=== PATIENT | male | born 1970 | race Caucasian/White ===

== ENCOUNTER 2017-03-30 12:56 | Observation (INO) ==
[2017-03-30] MEDS ORDERED: ENOXAPARIN 30 MG/0.3 ML SYRINGE SUBCUT STA (13:21)
[2017-03-30] MEDS ORDERED: NITROGLYCERIN 2% OINT 1 INCH/GM PACK TOP STA (13:22)
--- NOTE | 2017-03-30 13:32 | XRay Report ---
History: Chest pain Date: 03/30/2017 Study: Chest x-ray AP portable Comparison exam: October 27, 2016 The cardiomediastinal silhouette and pulmonary vasculature are unremarkable without significant interval change. There is no gross pleural effusion. The lungs are well-expanded and generally clear without acute infiltrate. Osseous structures are unchanged. Impression: No acute cardiopulmonary process. No significant interval change from the previous study PROCEDURE INTERPRETED AT [facility] DEPARTMENT OF RADIOLOGY Final Report Signed by: Dr. Jeannie Salazar
[2017-03-30] MEDS ORDERED: ENOXAPARIN 100 MG/ML SYRINGE SUBCUT ONE (13:38)
[2017-03-30] MEDS ORDERED: NITROGLYCERIN 2% OINT 1 INCH/GM PACK TOP ONE (13:38)
[2017-03-30 13:44] LABS: Basophils # 0.1 10*3/uL (0.0-0.2); Basophils % 0.9 % (0.0-0.8); Eosinophils # 0.3 10*3/uL (0.0-0.87); Eosinophils % 4.5 % (0.00-10.9); Hematocrit 42.2 VOL% (42.0-52.0); Immature Granulocytes Absolute 0.07 #; Lymphocytes # 1.9 10*3/uL (1.4-4.0); Lymphocytes % 27.2 % (21.2-54.2); Mean Corpuscular HGB Conc 35.5 GM/DL (32-36); Mean Corpuscular Hemoglobin 34 PG (27-34); Mean Corpuscular Volume 94.6 FL (87-102); Mean Platelet Volume 10.3 FL (9.6-12.0); Monocytes % 13.9 % (1.7-12.7); Neutrophils # 3.6 10*3/uL (1.4-7.4); Neutrophils % 52.5 % (38.7-73.9); Platelet Count 279 T/CUMM (130-400); Red Blood Count 4.46 MC/CUMM (3.8-5.5); Red Cell Distribution Width 11.9 % (9.3-17.3); White Blood Count 6.9 T/CUMM (4-12)
[2017-03-30 14:22] LABS: Troponin I Only < 0.015 NG/ML (0.00-0.045)
[2017-03-30] MEDS ORDERED: MAGNESIUM SULF RIDER 2 GM in PREMIX 1 EACH IV PRN ×2 (15:02→18:30)
[2017-03-30] MEDS ORDERED: ACETAMINOPHEN 325 MG TABLET PO PRN (15:02)
[2017-03-30] MEDS ORDERED: ONDANSETRON 4 MG/2 ML VIAL IV PRN (15:02)
[2017-03-30] MEDS ORDERED: MAGNESIUM SULF RIDER 4 GM in PREMIX 1 EACH IV PRN (15:02)
[2017-03-30] MEDS ORDERED: NITROGLYCERIN SL 0.4 MG TABLET SL PRN (15:04)
--- NOTE | 2017-03-30 15:09 | Emergency Department Note ---
Chadd Cody Brittany, am scribing for, and in the presence of, Thomas Donnelly MD 13:31. Cony Cody Phillip K, MD, personally performed the services described in this documentation, ascribed by Renata Florentino in my presence, and it is both accurate and complete . Arrival - Arrival Chief Complaint: Chest Pain Stated Complaint: chest and left arm pain ED Nursing Triage Note: pt ambulatory to triage with c/o having chest pain with nausea, diaphoretic, denies any sob. pt states he felt like he is going to pass out. pt states onset around 1100. pt states having radiating pain down left arm with numbness. and pain into neck with jaw pain. 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 Mode of Arrival: Ambulatory Limitations: No Limitations Source: Patient, RN Notes Reviewed Time Seen by Provider: 03/30/17 13:15 - History of Present Illness HPI Narrative: Patient is a 47 y/o white male presenting to the ED with c/o left-sided chest pain that began this morning around noon. Patient reports that he was just walking, not doing any particular type of exertional activity. He states that he took a NTG and 325 mg ASA, with some relief. He notes having some associated tingling sensation of the L hand, nausea, and weakness. He denies having any SOB. Patient reports that upon initial onset of chest pain he thought that it was related to the lesion located on level C6 of his spine due to history of chest pains associated, but after developing tingling of the L hand he became concerned that this was probably his heart. Denies any recent coughs or fevers. Patient notes that he is currently on Lisinopril and Lipitor for HTN and HLD, with which he is compliant. Patient notes last Cardiac Catheterization was about a year ago. Patient is followed by Dr. Griffin of Cardiology. Patient has no further complaints. Onset (ago): hour(s) (1) Consistency: constant Allergies/Adverse Reactions: Allergies Allergy/AdvReac Type Severity Reaction Status Date / Time levofloxacin [From Levaquin] Allergy RASH Verified 03/30/17 13:10 Home Medications: Home Medications Medication Instructions Recorded Confirmed Type Nitroglycerin Sl Tab [Nitrostat] 0.4 mg SL Q5M PRN #25 tablet 01/03/16 03/30/17 Rx Furosemide Tab [Lasix Tab] 40 mg PO DAILY 01/13/16 03/30/17 History Clopidogrel [Plavix] 75 mg PO DAILY 03/22/16 03/30/17 History Pantoprazole Tab [Protonix Tab] 40 mg PO BEDTIME 03/22/16 03/30/17 History Atorvastatin [Lipitor] 80 mg PO BEDTIME 05/13/16 03/30/17 History Lisinopril 5 mg PO DAILY 05/13/16 03/30/17 History Ranolazine [Ranexa] 1,000 mg PO BID #60 tablet 05/14/16 03/30/17 Rx Aspirin EC Tab 325 mg PO QAM 09/01/16 03/30/17 History Clorazepate [Tranxene] 3.75 mg PO TID PRN 09/01/16 03/30/17 History Dronedarone [Multaq] 400 mg PO BID 09/01/16 03/30/17 History HYDROcodone/ACETAMIN 5-325 [[place] 1 tablet PO Q4H PRN 09/01/16 03/30/17 History 5-325] Baclofen [Baclofen] 10 mg PO BID PRN 03/30/17 03/30/17 History Review of System - Review of System 12 point system: reviewed and no additional remarkable complaints except as stated - Review of System Constitutional: Present: diaphoresis. Absent: chills, fever Eyes: Absent: vision change Head/Ears/Nose/Throat: Absent: nasal drainage, sore throat Respiratory: Absent: respiratory distress Cardiovascular: Present: chest pain Gastrointestinal: Present: nausea. Absent: abdominal pain, vomiting Genitourinary male: Absent: urgency, dysuria, frequency Musculoskeletal: Present: arm pain. Absent: back pain, leg pain, neck pain Skin: Absent: rash Neurological: Present: other (tingling of the L hand). Absent: headache Psychiatric: Absent: anxiety, depression Hematological/Lymphatic: Absent: easy bleeding, easy bruising Medical,Surgical,& Family Hx - Medical History Cardio: History of: Cardiac Dysrhythmia, CAD (stents x3), Hypertension, VT, Cardiovascular Problems No history of: CHF, Pacemaker, PVD Neurology: History of: Cerebrovascular Accident No history of: Brain Aneurysm, Cerebral Hemorrhage, Cerebral Palsy, Dementia , Migraine, Multiple Sclerosis, Peripheral Neuropathy, Seizures, TIA, Vertigo, Neurologocal Cancer HEENT: No history of: Ear Problem, Eye Problem, Dental Problems, Glaucoma, Oral Cancer, HEENT Problems Endocrine: History of: Dyslipidemia, Thyroid Disorder (IN REACTION TO BP MEDS PER PT) Rheumatology: No history of;: Systemic Lupus Erythematosus, Rheumatological Problems Respiratory: History of: Asthma, Bronchitis, Pneumonia No history of: COPD, Intubation, Obstructive Sleep Apnea, Pulmonary Embolism , Pulmonary Hypertension, Lung Cancer, Respiratory Problems Renal: No history of: Renal (Kidney) Cancer, Dialysis, Renal Failure, Renal Problems Genitourinary: No history of: Bladder Problem, Kidney Stones, Prostate Problems, Recurring Urinary Tract Infections, Genitourinary Cancer, Problems Gastrointestinal: History of: GERD Musculoskeletal: No history of: Amputation, Back/Neck Problems, Degenerative Disk Disease, Musculoskeletal Problems Hematology: No history of: Blood Transfusion Reaction Other: No history of: Anesthesia Reactions, Anaphylaxis, Cancer, Eczema, HIV, Skin Problems - Surgical History Cardiac Surgeries: Sugical HX of: Cardiac Catheterization (stent x 4) Thoracic Surgeries: Patient denies;: Kidney (Renal Surgery), Lithotripsy, Nephrectomy, Organ Transplant, Lobectomy Neurologic Surgeries: Patient denies: Brain Aneurysm, Cerebral Hemorrhage, Neurologic Surgery HEENT Surgeries: Surgical HX of: Tonsilectomy & Adenoidectomy Patient denies: Thyroid Surgery Abdominal Surgeries: Patient denies: Cholecystectomy Reproductive Surgeries: Patient denies;: Cystoscopy, Genitourinary Surgery, Prostate Surgery Orthopedic Surgeries: Patient denies;: Implanted Devices, Orthopedic Surgery, Spinal Surgery, Total Hip Replacement, Total Knee Replacement - Family History Family History: Reports;: Family Cancer, Family Heart Disease, Family Hypertension Denies;: Family Stroke - Social History Smoking Status: Former smoker Frequency of Alcohol Use: Rarely Type of Drug Use: None Exam Vital Signs: Vital Signs Temperature 97.8 F 03/30/17 13:47 Pulse Rate 89 03/30/17 13:47 Respiratory Rate 18 03/30/17 13:47 Blood Pressure 121/93 03/30/17 13:47 O2 Sat by Pulse Oximetry 100 03/30/17 13:43 - General General appearance: alert, in no apparent distress - Head Head exam: Present: atraumatic, normocephalic, normal inspection - Eye Eye exam: Present: normal appearance, PERRL, EOMI - ENT ENT exam: Present: normal exam, normal oropharynx - Neck Neck exam: Present: normal inspection, full ROM, trachea midline - Chest Chest inspection: Present: normal inspection, symmetric chest wall rise - Respiratory Respiratory exam: Present: normal lung sounds bilaterally. Absent: respiratory distress - Cardiovascular Cardiovascular exam: Present: regular rate, normal rhythm, normal heart sounds. Absent: murmur, rubs, gallop - Abdominal Exam Abdominal exam: Present: soft, normal bowel sounds. Absent: distention, tenderness - Extremities Exam Extremities exam: Present: normal inspection. Absent: pedal edema - Back Exam Back exam: Present: normal inspection - Neurological Exam Neurological exam: Present: alert, oriented X3, CN II-XII intact. Absent: motor sensory deficit - Psychiatric Psychiatric exam: Present: normal affect, normal mood - Skin Skin exam: Present: warm, dry Course Course Narrative: Patient discussed with Dr. Griffin Results - Labs CBC & BMP: 03/30/17 13:34 Lab Results: I have reviewed the patients labs Labs: Laboratory Tests 03/30/17 13:34 WBC 6.9 RBC 4.46 Hgb 15.0 Hct 42.2 Plt Count 279 [place] % (Auto) 13.9 H Baso % (Auto) 0.9 H [place] # (Auto) 1.0 H Laboratory Tests 03/30/17 13:34 Magnesium 2.1 Laboratory Tests 03/30/17 13:34 Total Creatine Kinase 190 CK-MB (CK-2) 2.7 Troponin I < 0.015 Laboratory Tests 03/30/17 13:34 B-Natriuretic Peptide 15 - Diagnostic Findings Procedure: Chest x-ray: report reviewed by me (No acute cardiopulmonary process. No significant interval change from the previous study.) Disposition Clinical Impression: Unstable angina, Coronary artery disease, Essential hypertension Case discussed with: patient Disposition: Still a Patient Condition: Guarded Additional Instructions: Admit to Dr. Griffin
[2017-03-30 15:57] LABS: Bilirubin,Total 0.7 MG/DL (0.2-1.0); Calcium 9.2 MG/DL (8.5-10.1); Osmolality,Calculated 270.2 MOS/KG (273-304); Potassium 4.2 MMOL/L (3.5-5.1); Total Protein 7.2 G/DL (6.4-8.3)
[2017-03-30] MEDS ORDERED: BACLOFEN 10 MG TABLET PO PRN (16:12)
--- NOTE | 2017-03-30 16:46 | Cardiology History & Physical ---
<Tiffanie Anderson - Last Filed: 03/30/17 15:46> Assessment and Plan - Time spent with patient Time spent with patient: Greater than 30 minutes (1) Chest pain Status: Acute Assessment and plan: SEE PLAN OF CARE LISTED BELOW. Current Visit: Yes (2) Coronary artery disease Status: Chronic Assessment and plan: SEE PLAN OF CARE LISTED BELOW. Current Visit: Yes (3) Essential hypertension Status: Chronic Assessment and plan: SEE PLAN OF CARE LISTED BELOW. Current Visit: Yes (4) Fatigue Status: Acute Assessment and plan: SEE PLAN OF CARE LISTED BELOW. Current Visit: Yes (5) Cardiomyopathy, ischemic Status: Chronic Assessment and plan: SEE PLAN OF CARE LISTED BELOW. Current Visit: No (6) Dyslipidemia Status: Chronic Assessment and plan: SEE PLAN OF CARE LISTED BELOW. Current Visit: No (7) GERD (gastroesophageal reflux disease) Status: Chronic Assessment and plan: SEE PLAN OF CARE LISTED BELOW. Current Visit: No (8) Paroxysmal atrial fibrillation Status: Chronic Assessment and plan: SEE PLAN OF CARE LISTED BELOW. Current Visit: No (9) Renal insufficiency Status: Chronic Assessment and plan: SEE PLAN OF CARE LISTED BELOW. Current Visit: Yes History of Present Illness Chief complaint: Chest pain History of present illness: [employer]DER: Dr. Griffin PCP: Dr. Greenberg Mr. Palma is a 47 year old male with known history of coronary artery disease , routinely followed by Dr. Griffin. He has cardiac risk factors significant for: Known severe coronary artery disease, hypertension, family history of premature CAD, obesity, former smoker (quit in 2015) and dyslipidemia. He is a history of GERD, paroxysmal A. fib and ischemic cardiomyopathy. EF 40%. He has significant heart disease. He has undergone multiple heart catheterizations requiring numerous stents since December 2015. He received PCI to PDA and PCI to third posterior lateral branch December 2015. February 2016 he received PCI to proximal to mid LAD. His last heart catheterization at [facility] was performed by Dr. Solis. He required PCI to an obtuse marginal coronary artery at that time. He has since been to the [facility], April 2016. He had repeat catheterization at that facility which revealed patent stents and small vessel coronary artery disease with branch disease. Medical management has ensued. Ranexa 500 mg orally twice a day was initiated at the [facility] visit. He had normal cardiac stress test September 2016. Patient's most recent hospitalization was in October 2016. At that time it was felt that his chest pain was secondary to his C5-C6 cervical lesion. Pain management was consulted and felt that this could very well be contributing to his symptoms. He underwent cervical spine MRI which revealed small synovial cyst in the C5-C6 facet joint. Subsequently, he underwent biopsy which did not reveal inflammatory process. Patient was last seen by Dr. Griffin in the cardiology clinic January 2017. At that time, he is without complaints of angina. Patient presented to [facility] today for further evaluation of chest pain. He reports that he has been having problems with intermittent episodes of chest discomfort for the past 10 days. He reports that he developed substernal chest pain while walking at work today. He describes his pain as a pressure/sharp pain. Associated with nausea and diaphoresis. Denies associated shortness of breath. Rates his pain a 6 out of 10. He does tell me that it was made worse with walking. This continued for at least 45 minutes. His pain improved after taking aspirin and nitroglycerin. He then began experiencing left arm pain and numbness. At that point, he was concerned that it was cardiac related and he needs to be further evaluated in the emergency department. Patient reports that every time that he has required coronary intervention he has presented differently. He reports that his symptomology this time is not necessarily exactly as previous times. Per his report, they are never the same. When he arrived in the ER he received nitro paste which he reports completely alleviated his pain. Patient has not experienced any further chest pain since that time. Patient has been admitted under cardiology service. Housed in the telemetry unit. Of note, patient does confirm easy fatigability of her the past week. He has had no energy. He denies fever, chills, cough, abdominal pain, vomiting, melena , lower extremity swelling, dyspnea on exertion, orthopnea and PND. Patient was seen and examined on the telemetry unit. Patient is currently without complaint of chest pain, heaviness or tightness. Cardiac biomarkers negative so far. EKG without ischemic changes. Will continue to trend cardiac biomarkers and EKGs. We will keep patient n.p.o. after midnight. Given patient 's significant history of coronary artery disease, I will discuss with Dr. Griffin and Dr. Chaudhary regarding the need for possible heart catheterization in the morning if his renal function optimizes. I will hold his ROSALBA inhibitor and begin hydration. Recheck renal function in the morning. Patient is not on beta -blockade at this time as he has been unable to tolerate this in the past per his report. Patient received therapeutic dose of Lovenox. Continue dual antiplatelet therapy, lipid-lowering agent and nitrates. Further plan and addendum to follow per Dr. Griffin. IMPRESSION AND PLAN 1. CHEST PAIN - Patient is currently chest pain-free. Cardiac biomarkers are negative so far. EKG without ischemic changes. Will continue to trend cardiac biomarkers and EKGs. We will keep patient n.p.o. after midnight. Given patient 's significant history of coronary artery disease, I will discuss with Dr. Griffin and Dr. Chaudhary regarding possible heart catheterization in the morning if his renal function optimizes. I will hold his ROSALBA inhibitor and begin hydration. Recheck renal function in the morning. Patient is not on beta-blockade at this time as he has been unable to tolerate this in the past per his report. Patient received therapeutic dose of Lovenox. Continue dual antiplatelet therapy, lipid-lowering agent and nitrates. Further plan and addendum to follow per Dr. Griffin. 2. KNOWN CAD - Patient does have known CAD with multiple coronary interventions in the past. Continue aspirin, Plavix, lipid-lowering agent, Ranexa, and nitrates. Patient is not on beta-blockade at this time as patient has not tolerated this medication in the past per his report. 3. CARDIOMYOPATHY, ISCHEMIC - Most recent ejection fraction 40% per cardiac stress test performed September 2016. No evidence of overt heart failure this hospitalization. BNP stable at 15. Holding ROSALBA inhibitor due to fear of worsening renal function. Patient is not on beta-blockade at this time as he has not been able to tolerate this medication in the past. 4. DYSLIPIDEMIA - Continue lipid-lowering agent. Lipid panel in the morning. 5. HYPERTENSION - Under well control. Will continue to monitor blood pressure and adjust medications accordingly. 6. PAROXYSMAL ATRIAL FIBRILLATION - No evidence of atrial fibrillation this hospitalization. Patient has a chads vas score of 2. Continue aspirin. I will discuss with Dr. 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 7. GERD - Continue PPI. 8. C5-C6 CERVICAL LESION - Chronic, stable. 9. RENAL INSUFFICIENCY - This is chronic. Creatinine today 1.6. We will hold patient's ROSALBA inhibitor and begin hydration tonight. Recheck renal function in the morning Home Medications Medication Instructions Recorded Confirmed Type Nitroglycerin Sl Tab [Nitrostat] 0.4 mg SL Q5M PRN #25 tablet 01/03/16 03/30/17 Rx Furosemide Tab [Lasix Tab] 40 mg PO DAILY 01/13/16 03/30/17 History Clopidogrel [Plavix] 75 mg PO DAILY 03/22/16 03/30/17 History Pantoprazole Tab [Protonix Tab] 40 mg PO BEDTIME 03/22/16 03/30/17 History Atorvastatin [Lipitor] 80 mg PO BEDTIME 05/13/16 03/30/17 History Lisinopril 5 mg PO DAILY 05/13/16 03/30/17 History Ranolazine [Ranexa] 1,000 mg PO BID #60 tablet 05/14/16 03/30/17 Rx Aspirin EC Tab 325 mg PO QAM 09/01/16 03/30/17 History Clorazepate [Tranxene] 3.75 mg PO TID PRN 09/01/16 03/30/17 History Dronedarone [Multaq] 400 mg PO BID 09/01/16 03/30/17 History HYDROcodone/ACETAMIN 5-325 [[place] 1 tablet PO Q4H PRN 09/01/16 03/30/17 History 5-325] Allergies Allergy/AdvReac Type Severity Reaction Status Date / Time levofloxacin [From Levaquin] Allergy Intermediate RASH Verified 03/30/17 16:33 Beta-Blockers AdvReac Severe Fainting Verified 03/30/17 16:36 (Beta-Adrenergic Bloc ticagrelor [From Brilinta] AdvReac Severe Fainting Verified 03/30/17 16:36 - Constitutional Constitutional: Present: as per HPI, fatigue, malaise, weakness. Absent: chills , fever(s), frequent falls, headache(s), weight gain, weight loss - Cardiovascular Cardiovascular: Present: as per HPI, chest pain with activity, diaphoresis, radiating jaw, neck or arm pain, lightheadedness. Absent: dyspnea, dyspnea on exertion, edema, orthopnea, palpitations, PND - Respiratory Respiratory: Present: as per HPI. Absent: cough, dyspnea, hemoptysis, dyspnea on exertion, wheezing, snoring, pain on inspiration, change in phlegm color - Gastrointestinal Gastrointestinal: Present: as per HPI, nausea. Absent: abdominal pain, change in bowel habits, coffee ground emesis, heartburn, hematemesis, hematochezia, melena, vomiting - Neurological Neurological: Present: as per HPI. Absent: abnormal gait, abnormal speech, behavioral changes, frequent falls, headache(s), syncope - Psychiatric Psychiatric: Present: as per HPI, anxiety - Hematologic/Lymphatic Hematologic/Lymphatic: Present: as per HPI. Absent: easy bleeding, easy bruising, lymphadenopathy Medical,Surgical,& Family Hx - Medical History Cardio: History of: Cardiac Dysrhythmia, CAD (stents x3), Hypertension, [place], Cardiovascular Problems Endocrine: History of: Dyslipidemia Rheumatology: No history of;: Systemic Lupus Erythematosus, Rheumatological Problems Respiratory: History of: Asthma, Bronchitis, Pneumonia Gastrointestinal: History of: GERD - Surgical History Cardiac Surgeries: Sugical HX of: Cardiac Catheterization (stent x 4) HEENT Surgeries: Surgical HX of: Tonsilectomy & Adenoidectomy Reproductive Surgeries: Patient denies;: Genitourinary Surgery, Prostate Surgery - Family History Family History: Reports;: Family Cancer, Family Heart Disease, Family Hypertension Denies;: Family Stroke - Social History Smoking Status: Former smoker Frequency of Alcohol Use: Rarely Type of Drug Use: None Marital Status: Lives With:: Spouse Functional capacity: independent ambulation Cardiology Physical Exam - Constitutional Vitals: Vital Signs Temp Pulse Resp BP Pulse Ox 97.8 F 89 18 121/93 100 03/30/17 13:47 03/30/17 13:47 03/30/17 13:47 03/30/17 13:47 03/30/17 13:43 Intake and Output 03/30/17 03/30/17 03/30/17 06:59 14:59 22:59 Other: Weight 230 lb Patient Weight 03/31/17 06:59 Weight 230 lb Exam: General: Appears well with no apparent distress. Pleasant and cooperative. Appears comfortable. HEENT: PERRL, normocephalic, atraumatic. Mucous membranes moist. No jaundice noted. Conjunctiva moist and clear, sclerae anicteric Neck: No JVD/HJR, no thyromegaly or lymphadenopathy noted. No carotid bruit appreciated Cardiac: Regular rate and rhythm. No murmur rub or gallop. Lungs: Clear to auscultation without accessory muscle use to assist the respiratory pattern. Not requiring oxygen. Abdomen: Soft, bowel sounds normoactive. Nontender and nondistended. No abdominal bruit or thrill noted. No masses noted. Extremities: No clubbing, cyanosis noted. No edema noted. Upper extremity pulses 2+. Lower extremity pulses 2+. Capillary refill less than 3 seconds. Skin: No unusual lesions or rashes. No skin breakdown appreciated. Neuro: Awake, alert and oriented 3. Moves all extremities well without hemiparesis or paralysis. No essential tremor is appreciated. Result/EKG - Labs CBC & BMP: 03/30/17 13:34 Lab Results: I have reviewed the past 24 hour labs Labs: Laboratory Results - last 24 hr 03/30/17 03/30/17 03/30/17 13:34 13:34 13:34 WBC 6.9 RBC 4.46 Hgb 15.0 Hct 42.2 MCV 94.6 MCH 34 MCHC 35.5 RDW 11.9 Plt Count 279 MPV 10.3 Neut % (Auto) 52.5 Lymph % (Auto) 27.2 [place] % (Auto) 13.9 H Eos % (Auto) 4.5 Baso % (Auto) 0.9 H Neut # (Auto) 3.6 Lymph # (Auto) 1.9 [place] # (Auto) 1.0 H Eos # (Auto) 0.3 Baso # (Auto) 0.1 Immature Gran % 1.0 Nucleated RBC % 0.0 Immature Gran # 0.07 Nucleated RBCs # 0.00 Immature Plt Fraction 0.0 Magnesium 2.1 Total Creatine Kinase CK-MB (CK-2) Troponin I B-Natriuretic Peptide 15 03/30/17 13:34 WBC RBC Hgb Hct MCV MCH MCHC RDW Plt Count MPV Neut % (Auto) Lymph % (Auto) [place] % (Auto) Eos % (Auto) Baso % (Auto) Neut # (Auto) Lymph # (Auto) [place] # (Auto) Eos # (Auto) Baso # (Auto) Immature Gran % Nucleated RBC % Immature Gran # Nucleated RBCs # Immature Plt Fraction Magnesium Total Creatine Kinase 190 CK-MB (CK-2) 2.7 Troponin I < 0.015 B-Natriuretic Peptide - EKG EKG results: interpreted by me, sinus rhythm <Griffin,Brett Philip - Last Filed: 03/30/17 18:30> History of Present Illness History of present illness: Patient personally interviewed and examined chart reviewed. Discussed this case with Tiffanie Anderson NP. Agree with the assessment and evaluation and plan. Mr. Palma is a 47 year old male who has had coronary disease with stent placement of the RCA as well as the obtuse marginal branch and LAD. The patient had recurrent other problems and neck pain arm pain that is been probably muscle skeletal and secondary to spinal nerve issues from that. The patient though today had episode of arm pains chest pain. His ECG does not reveal any acute changes cardiac enzymes are unremarkable. He also has had some episodes of just feeling suddenly weak little lightheaded. In the past she has had some atrial fibrillation as well as issues in some PVCs. He though is presently doing well his present medical regimen in general. I think because of his symptomatology known coronary disease and symptoms we will proceed with cardiac catheterization tomorrow the right radial approach. I discussed the procedure with he and his indicated procedure had be carried out the risk. I discussed cardiac catheterization and percutaneous coronary intervention with the patient and available family. I reviewed with them the indications for the procedure and the basis of how the procedure would be carried out. I also reviewed with them the risk of the procedure which include but not necessarily limited to access site bleeding, bruising, pain, swelling or vascular injury that may require emergency vascular surgery, blood transfusion, or thrombin injection. Also discussed the possibility of stroke, myocardial infarction, arrhythmia which may require electrocardioversion, and the possibility of dye reaction that would require medical therapy. Also discussed the possibility of coronary artery injury, ruptured, closure or perforation that may require emergency bypass surgery. We also discussed the possibility of from a major complication. They voice understanding and agree to proceed. We will plan on carrying out tomorrow. Cardiology Physical Exam - Constitutional Vitals: Vital Signs Temp Pulse Resp BP Pulse Ox 97.6 F 79 18 114/76 94 L 03/30/17 16:12 03/30/17 16:12 03/30/17 16:12 03/30/17 16:12 03/30/17 16:12 Intake and Output 03/30/17 03/30/17 03/30/17 07:59 15:59 23:59 Other: Weight 104.326 kg 102.654 kg Patient Weight 03/30/17 23:59 Weight 102.654 kg Result/EKG - Labs CBC & BMP: 03/30/17 13:34 03/30/17 13:34 Labs: Laboratory Results - last 24 hr 03/30/17 03/30/17 03/30/17 13:34 13:34 13:34 WBC 6.9 RBC 4.46 Hgb 15.0 Hct 42.2 MCV 94.6 MCH 34 MCHC 35.5 RDW 11.9 Plt Count 279 MPV 10.3 Neut % (Auto) 52.5 Lymph % (Auto) 27.2 [place] % (Auto) 13.9 H Eos % (Auto) 4.5 Baso % (Auto) 0.9 H Neut # (Auto) 3.6 Lymph # (Auto) 1.9 [place] # (Auto) 1.0 H Eos # (Auto) 0.3 Baso # (Auto) 0.1 Immature Gran % 1.0 Nucleated RBC % 0.0 Immature Gran # 0.07 Nucleated RBCs # 0.00 Immature Plt Fraction 0.0 Sodium 134 L Potassium 4.2 Chloride 103 Carbon Dioxide 25 Anion Gap 10.2 BUN 18 Creatinine 1.60 H GFR Calculation 66 BUN/Creatinine Ratio 11.00 Glucose 115 H Calculated Osmolality 270.2 L Calcium 9.2 Magnesium 2.1 Total Bilirubin 0.70 AST 34 ALT 45 Alkaline Phosphatase 77 Total Creatine Kinase CK-MB (CK-2) Troponin I B-Natriuretic Peptide Total Protein 7.2 Albumin 4.0 Globulin 3.2 Albumin/Globulin Ratio 1.2 03/30/17 03/30/17 03/30/17 13:34 13:34 16:36 WBC RBC Hgb Hct MCV MCH MCHC RDW Plt Count MPV Neut % (Auto) Lymph % (Auto) [place] % (Auto) Eos % (Auto) Baso % (Auto) Neut # (Auto) Lymph # (Auto) [place] # (Auto) Eos # (Auto) Baso # (Auto) Immature Gran % Nucleated RBC % Immature Gran # Nucleated RBCs # Immature Plt Fraction Sodium Potassium Chloride Carbon Dioxide Anion Gap BUN Creatinine GFR Calculation BUN/Creatinine Ratio Glucose Calculated Osmolality Calcium Magnesium Total Bilirubin AST ALT Alkaline Phosphatase Total Creatine Kinase 190 CK-MB (CK-2) 2.7 Troponin I < 0.015 0.018 B-Natriuretic Peptide 15 Total Protein Albumin Globulin Albumin/Globulin Ratio
[2017-03-30] MEDS: SODIUM CHLORIDE 0.9% 1,000 ML IV SCH (17:27)
[2017-03-30] MEDS ORDERED: DIAZEPAM 5 MG TABLET PO ONE (18:30)
[2017-03-30] MEDS ORDERED: POTASSIUM CHLORIDE RIDER 10 MEQ in PREMIX 1 EACH IV PRN (18:30)
[2017-03-30] MEDS ORDERED: diphenhydrAMINE CAP 25 MG CAPSULE PO ONE (18:30)
[2017-03-30] MEDS: DRONEDARONE 400 MG TABLET PO SCH (20:38)
[2017-03-30] MEDS: RANOLAZINE 500 MG TABLET PO SCH (20:39)
[2017-03-30] MEDS ORDERED: PANTOPRAZOLE 40 MG TABLET PO SCH (21:00)
[2017-03-30] MEDS ORDERED: ATORVASTATIN 80 MG TABLET PO SCH (21:00)
[2017-03-31] MEDS ORDERED: ENOXAPARIN 100 MG/ML SYRINGE SUBCUT SCH
[2017-03-31] MEDS: SODIUM CHLORIDE 0.9% 1,000 ML IV SCH ×2 (02:53→13:06)
[2017-03-31 06:24] LABS: Basophils # 0.1 10*3/uL (0.0-0.2); Eosinophils # 0.3 10*3/uL (0.0-0.87); Eosinophils % 4.3 % (0.00-10.9); Hematocrit 41.9 VOL% (42.0-52.0); Hemoglobin 14.1 GM/DL (14.0-18.0); Immature Granulocytes % 1.2 %; Immature Granulocytes Absolute 0.08 #; Lymphocytes # 2.1 10*3/uL (1.4-4.0); Mean Corpuscular HGB Conc 33.7 GM/DL (32-36); Mean Corpuscular Hemoglobin 33 PG (27-34); Mean Corpuscular Volume 97.2 FL (87-102); Mean Platelet Volume 10.5 FL (9.6-12.0); Monocytes # 0.9 10*3/uL (0.11-0.8); Monocytes % 13.4 % (1.7-12.7); Neutrophils # 3.3 10*3/uL (1.4-7.4); Neutrophils % 49.1 % (38.7-73.9); Platelet Count 283 T/CUMM (130-400); Red Blood Count 4.31 MC/CUMM (3.8-5.5); Red Cell Distribution Width 12.1 % (9.3-17.3); White Blood Count 6.8 T/CUMM (4-12)
[2017-03-31 06:58] LABS: Calcium 8.7 MG/DL (8.5-10.1); Magnesium 2.3 MG/DL (1.8-2.4); Osmolality,Calculated 281.3 MOS/KG (273-304); Potassium 4.4 MMOL/L (3.5-5.1)
--- NOTE | 2017-03-31 07:10 | Order Completion Report ---
See report scanned to EMR
[2017-03-31] MEDS ORDERED: diphenhydrAMINE CAP 25 MG CAPSULE PO ONE (08:00)
[2017-03-31] MEDS ORDERED: DIAZEPAM 5 MG TABLET PO ONE (08:00)
[2017-03-31 08:39] LABS: Risk Ratio 3.25
[2017-03-31] MEDS: RANOLAZINE 500 MG TABLET PO SCH (08:45)
[2017-03-31] MEDS: DRONEDARONE 400 MG TABLET PO SCH (08:45)
[2017-03-31 08:49] LABS: INR 1.1; PT Patient Result 11.1 SECS
--- NOTE | 2017-03-31 08:58 | Cardiology Progress Note ---
<Tiffanie Anderson - Last Filed: 03/31/17 09:04> Assessment and Plan (1) Chest pain Status: Acute Assessment and plan: SEE PLAN OF CARE LISTED BELOW. Current Visit: Yes (2) Coronary artery disease Status: Chronic Assessment and plan: SEE PLAN OF CARE LISTED BELOW. Current Visit: Yes (3) Essential hypertension Status: Chronic Assessment and plan: SEE PLAN OF CARE LISTED BELOW. Current Visit: Yes (4) Fatigue Status: Acute Assessment and plan: SEE PLAN OF CARE LISTED BELOW. Current Visit: Yes (5) Cardiomyopathy, ischemic Status: Chronic Assessment and plan: SEE PLAN OF CARE LISTED BELOW. Current Visit: No (6) Dyslipidemia Status: Chronic Assessment and plan: SEE PLAN OF CARE LISTED BELOW. Current Visit: No (7) GERD (gastroesophageal reflux disease) Status: Chronic Assessment and plan: SEE PLAN OF CARE LISTED BELOW. Current Visit: No (8) Paroxysmal atrial fibrillation Status: Chronic Assessment and plan: SEE PLAN OF CARE LISTED BELOW. Current Visit: No (9) Renal insufficiency Status: Chronic Assessment and plan: SEE PLAN OF CARE LISTED BELOW. 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 Griffin PCP: Dr. Greenberg Mr. Palma is a 47 year old male with known history of coronary artery disease , routinely followed by Dr. Griffin. He has cardiac risk factors significant for: Known severe coronary artery disease, hypertension, family history of premature CAD, obesity, former smoker (quit in 2015) and dyslipidemia. He is a history of GERD, paroxysmal A. fib and ischemic cardiomyopathy. EF 40%. He has significant heart disease. He has undergone multiple heart catheterizations requiring numerous stents since December 2015. He received PCI to PDA and PCI to third posterior lateral branch December 2015. February 2016 he received PCI to proximal to mid LAD. His last heart catheterization at [facility] was performed by Dr. Solis. He required PCI to an obtuse marginal coronary artery at that time. He has since been to the [facility], April 2016. He had repeat catheterization at that facility which revealed patent stents and small vessel coronary artery disease with branch disease. Medical management has ensued. Ranexa 500 mg orally twice a day was initiated at the [facility] visit. He had normal cardiac stress test September 2016. Patient's most recent hospitalization was in October 2016. At that time it was felt that his chest pain was secondary to his C5-C6 cervical lesion. Pain management was consulted and felt that this could very well be contributing to his symptoms. He underwent cervical spine MRI which revealed small synovial cyst in the C5-C6 facet joint. Subsequently, he underwent biopsy which did not reveal inflammatory process. Patient was last seen by Dr. Griffin in the cardiology clinic January 2017. At that time, he is without complaints of angina. Patient presented to [facility] today for further evaluation of chest pain. 2016 Patient was seen and examined on the telemetry unit. He is sitting up in bed in no acute distress. Not experiencing any chest pain, heaviness or tightness this morning. Denies shortness of breath. Patient ruled out for OR with negative cardiac biomarkers. No acute changes noted in EKG. However, given patient's significant history of CAD and presenting symptomology we will go ahead and proceed with heart catheterization today. Patient was kept n.p.o. after midnight. Overnight, we are concerned of patient's renal function. He received hydration and ROSALBA inhibitor was held overnight. His creatinine has improved this morning at 1.4. We will go ahead and proceed with heart catheterization this morning. Radial approach will be attempted. Patient may be eligible for discharge later this afternoon if coronary anatomy is unchanged. He is hemodynamically stable. Labs reviewed. I will further discuss with Dr. Griffin and await his additional recommendations. IMPRESSION AND PLAN 1. CHEST PAIN - Patient ruled out for OR with negative cardiac biomarkers. No acute changes noted in EKG. However, given patient's significant history of CAD and presenting symptomology we will go ahead and proceed with heart catheterization today. Patient was kept n.p.o. after midnight. Overnight, we are concerned of patient's renal function. He received hydration and ROSALBA inhibitor was held overnight. His creatinine has improved this morning at 1.6. We will go ahead and proceed with heart catheterization this morning. Risk and benefits of procedure were reviewed with patient. He is agreeable to proceed. Radial approach will be attempted. Patient may be eligible for discharge later this afternoon if coronary anatomy is unchanged. Continue dual antiplatelet therapy, lipid-lowering agent and nitrates. Continue to hold ROSALBA inhibitor for fear of worsening renal function. Historically, patient has not been able to tolerate beta-blockade. For this reason, patient is on this medication. 2. KNOWN CAD - Patient does have known CAD with multiple coronary interventions in the past. Continue aspirin, Plavix, lipid-lowering agent, Ranexa, and nitrates. Patient is not on beta-blockade at this time as patient has not tolerated this medication in the past per his report. 3. CARDIOMYOPATHY, ISCHEMIC - Most recent ejection fraction 40% per cardiac stress test performed September 2016. No evidence of overt heart failure this hospitalization. BNP stable at 15. Holding ROSALBA inhibitor due to fear of worsening renal function. Patient is not on beta-blockade at this time as he has not been able to tolerate this medication in the past. 4. DYSLIPIDEMIA - Continue lipid-lowering agent. LDL 62. 5. HYPERTENSION - Under well control. Will continue to monitor blood pressure and adjust medications accordingly. 6. PAROXYSMAL ATRIAL FIBRILLATION - No evidence of atrial fibrillation this hospitalization. Patient has a chads vas score of 2. Continue aspirin. I will discuss with Dr. 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 7. GERD - Continue PPI. 8. C5-C6 CERVICAL LESION - Chronic, stable. 9. RENAL INSUFFICIENCY - This is chronic. Creatinine today 1.4. Continue hydration and to hold patient's ROSALBA inhibitor. Daily BMP. Exam (Progress Note) - Constitutional Vitals: Period Temp Pulse Resp BP Sys/Garrett Pulse Ox Last 24 Hr 97.4 F-98.6 F 62-89 18-20 103-125/61-93 93-100 Exam: General: Appears well with no apparent distress. Pleasant and cooperative. Appears comfortable. HEENT: PERRL, normocephalic, atraumatic. Mucous membranes moist. No jaundice noted. Conjunctiva moist and clear, sclerae anicteric Neck: No JVD/HJR, no thyromegaly or lymphadenopathy noted. No carotid bruit appreciated Cardiac: Regular rate and rhythm. No murmur rub or gallop. Lungs: Clear to auscultation without accessory muscle use to assist the respiratory pattern. Not requiring oxygen. Abdomen: Soft, bowel sounds normoactive. Nontender and nondistended. No abdominal bruit or thrill noted. No masses noted. Extremities: No clubbing, cyanosis noted. No edema noted. Upper extremity pulses 2+. Lower extremity pulses 2+. Capillary refill less than 3 seconds. Skin: No unusual lesions or rashes. No skin breakdown appreciated. Neuro: Awake, alert and oriented 3. Moves all extremities well without hemiparesis or paralysis. No essential tremor is appreciated. Result/EKG - Labs CBC & BMP: 03/31/17 04:04 03/31/17 04:04 Lab Results: I have reviewed the past 24 hour labs Labs: Laboratory Results - last 24 hr 03/30/17 03/30/17 03/30/17 13:34 13:34 13:34 WBC 6.9 RBC 4.46 Hgb 15.0 Hct 42.2 MCV 94.6 MCH 34 MCHC 35.5 RDW 11.9 Plt Count 279 MPV 10.3 Neut % (Auto) 52.5 Lymph % (Auto) 27.2 [place] % (Auto) 13.9 H Eos % (Auto) 4.5 Baso % (Auto) 0.9 H Neut # (Auto) 3.6 Lymph # (Auto) 1.9 [place] # (Auto) 1.0 H Eos # (Auto) 0.3 Baso # (Auto) 0.1 Immature Gran % 1.0 Nucleated RBC % 0.0 Immature Gran # 0.07 Nucleated RBCs # 0.00 Immature Plt Fraction 0.0 INR PT Patient/Control Mix Sodium 134 L Potassium 4.2 Chloride 103 Carbon Dioxide 25 Anion Gap 10.2 BUN 18 Creatinine 1.60 H GFR Calculation 66 BUN/Creatinine Ratio 11.00 Glucose 115 H Calculated Osmolality 270.2 L Calcium 9.2 Magnesium 2.1 Total Bilirubin 0.70 AST 34 ALT 45 Alkaline Phosphatase 77 Total Creatine Kinase CK-MB (CK-2) Troponin I B-Natriuretic Peptide Total Protein 7.2 Albumin 4.0 Globulin 3.2 Albumin/Globulin Ratio 1.2 Triglycerides Cholesterol LDL Cholesterol VLDL Cholesterol HDL Cholesterol Heart Disease Risk Ratio 03/30/17 03/30/17 03/30/17 13:34 13:34 16:36 WBC RBC Hgb Hct MCV MCH MCHC RDW Plt Count MPV Neut % (Auto) Lymph % (Auto) [place] % (Auto) Eos % (Auto) Baso % (Auto) Neut # (Auto) Lymph # (Auto) [place] # (Auto) Eos # (Auto) Baso # (Auto) Immature Gran % Nucleated RBC % Immature Gran # Nucleated RBCs # Immature Plt Fraction INR PT Patient/Control Mix Sodium Potassium Chloride Carbon Dioxide Anion Gap BUN Creatinine GFR Calculation BUN/Creatinine Ratio Glucose Calculated Osmolality Calcium Magnesium Total Bilirubin AST ALT Alkaline Phosphatase Total Creatine Kinase 190 CK-MB (CK-2) 2.7 Troponin I < 0.015 0.018 B-Natriuretic Peptide 15 Total Protein Albumin Globulin Albumin/Globulin Ratio Triglycerides Cholesterol LDL Cholesterol VLDL Cholesterol HDL Cholesterol Heart Disease Risk Ratio 03/30/17 03/31/17 03/31/17 20:57 04:04 04:04 WBC 6.8 RBC 4.31 Hgb 14.1 Hct 41.9 L MCV 97.2 MCH 33 MCHC 33.7 RDW 12.1 Plt Count 283 MPV 10.5 Neut % (Auto) 49.1 Lymph % (Auto) 31.0 [place] % (Auto) 13.4 H Eos % (Auto) 4.3 Baso % (Auto) 1.0 H Neut # (Auto) 3.3 Lymph # (Auto) 2.1 [place] # (Auto) 0.9 H Eos # (Auto) 0.3 Baso # (Auto) 0.1 Immature Gran % 1.2 Nucleated RBC % 0.0 Immature Gran # 0.08 Nucleated RBCs # 0.00 Immature Plt Fraction 0.0 INR PT Patient/Control Mix Sodium 141 Potassium 4.4 Chloride 106 Carbon Dioxide 31 Anion Gap 8.4 BUN 19 H Creatinine 1.40 H GFR Calculation 77 BUN/Creatinine Ratio 13.00 Glucose 87 Calculated Osmolality 281.3 Calcium 8.7 Magnesium 2.3 Total Bilirubin AST ALT Alkaline Phosphatase Total Creatine Kinase 139 D CK-MB (CK-2) 2.4 Troponin I 0.020 B-Natriuretic Peptide Total Protein Albumin Globulin Albumin/Globulin Ratio Triglycerides Cholesterol LDL Cholesterol VLDL Cholesterol HDL Cholesterol Heart Disease Risk Ratio 03/31/17 03/31/17 04:04 08:16 WBC RBC Hgb Hct MCV MCH MCHC RDW Plt Count MPV Neut % (Auto) Lymph % (Auto) [place] % (Auto) Eos % (Auto) Baso % (Auto) Neut # (Auto) Lymph # (Auto) [place] # (Auto) Eos # (Auto) Baso # (Auto) Immature Gran % Nucleated RBC % Immature Gran # Nucleated RBCs # Immature Plt Fraction INR 1.1 PT Patient/Control Mix 11.1 Sodium Potassium Chloride Carbon Dioxide Anion Gap BUN Creatinine GFR Calculation BUN/Creatinine Ratio Glucose Calculated Osmolality Calcium Magnesium Total Bilirubin AST ALT Alkaline Phosphatase Total Creatine Kinase CK-MB (CK-2) Troponin I B-Natriuretic Peptide Total Protein Albumin Globulin Albumin/Globulin Ratio Triglycerides 200 H Cholesterol 117 LDL Cholesterol 62.0 VLDL Cholesterol 40.0 HDL Cholesterol 36 L Heart Disease Risk Ratio 3.25 <Brett Griffin - Last Filed: 03/31/17 10:27> Cardiology - PN: Subj Interval history: Patient personally reviewed and examined and chart reviewed. Discussed his case with Tiffanie Anderson NP. I agree with the assessment and evaluation and plan. In summation and addition the patient had no chest pain or symptomatology since admission. His troponins are not diagnostic for ischemia. The patient's creatinine is decreased to 1.6-1.4. A lot of the fact that he has had diffuse coronary disease small coronary arteries at think he needs a definitive diagnosis for his disease. Again discussed this procedure as I did last night when he and his . Again reviewed the indications benefits and risk. They voiced understanding and agree to proceed today. Either I or Dr. Chaudhary will carry this out and he understands this. If he has no significant disease and we will proceed with discharge probably later today. His lipids are at goal. Exam (Progress Note) - Constitutional Vitals: Period Temp Pulse Resp BP Sys/Garrett Pulse Ox Last 24 Hr 97.4 F-98.6 F 62-89 18-20 103-125/61-93 93-100 Result/EKG - Labs CBC & BMP: 03/31/17 04:04 03/31/17 04:04 Labs: Laboratory Results - last 24 hr 03/30/17 03/30/17 03/30/17 13:34 13:34 13:34 WBC 6.9 RBC 4.46 Hgb 15.0 Hct 42.2 MCV 94.6 MCH 34 MCHC 35.5 RDW 11.9 Plt Count 279 MPV 10.3 Neut % (Auto) 52.5 Lymph % (Auto) 27.2 [place] % (Auto) 13.9 H Eos % (Auto) 4.5 Baso % (Auto) 0.9 H Neut # (Auto) 3.6 Lymph # (Auto) 1.9 [place] # (Auto) 1.0 H Eos # (Auto) 0.3 Baso # (Auto) 0.1 Immature Gran % 1.0 Nucleated RBC % 0.0 Immature Gran # 0.07 Nucleated RBCs # 0.00 Immature Plt Fraction 0.0 INR PT Patient/Control Mix Sodium 134 L Potassium 4.2 Chloride 103 Carbon Dioxide 25 Anion Gap 10.2 BUN 18 Creatinine 1.60 H GFR Calculation 66 BUN/Creatinine Ratio 11.00 Glucose 115 H Calculated Osmolality 270.2 L Calcium 9.2 Magnesium 2.1 Total Bilirubin 0.70 AST 34 ALT 45 Alkaline Phosphatase 77 Total Creatine Kinase CK-MB (CK-2) Troponin I B-Natriuretic Peptide Total Protein 7.2 Albumin 4.0 Globulin 3.2 Albumin/Globulin Ratio 1.2 Triglycerides Cholesterol LDL Cholesterol VLDL Cholesterol HDL Cholesterol Heart Disease Risk Ratio 03/30/17 03/30/17 03/30/17 13:34 13:34 16:36 WBC RBC Hgb Hct MCV MCH MCHC RDW Plt Count MPV Neut % (Auto) Lymph % (Auto) [place] % (Auto) Eos % (Auto) Baso % (Auto) Neut # (Auto) Lymph # (Auto) [place] # (Auto) Eos # (Auto) Baso # (Auto) Immature Gran % Nucleated RBC % Immature Gran # Nucleated RBCs # Immature Plt Fraction INR PT Patient/Control Mix Sodium Potassium Chloride Carbon Dioxide Anion Gap BUN Creatinine GFR Calculation BUN/Creatinine Ratio Glucose Calculated Osmolality Calcium Magnesium Total Bilirubin AST ALT Alkaline Phosphatase Total Creatine Kinase 190 CK-MB (CK-2) 2.7 Troponin I < 0.015 0.018 B-Natriuretic Peptide 15 Total Protein Albumin Globulin Albumin/Globulin Ratio Triglycerides Cholesterol LDL Cholesterol VLDL Cholesterol HDL Cholesterol Heart Disease Risk Ratio 03/30/17 03/31/17 03/31/17 20:57 04:04 04:04 WBC 6.8 RBC 4.31 Hgb 14.1 Hct 41.9 L MCV 97.2 MCH 33 MCHC 33.7 RDW 12.1 Plt Count 283 MPV 10.5 Neut % (Auto) 49.1 Lymph % (Auto) 31.0 [place] % (Auto) 13.4 H Eos % (Auto) 4.3 Baso % (Auto) 1.0 H Neut # (Auto) 3.3 Lymph # (Auto) 2.1 [place] # (Auto) 0.9 H Eos # (Auto) 0.3 Baso # (Auto) 0.1 Immature Gran % 1.2 Nucleated RBC % 0.0 Immature Gran # 0.08 Nucleated RBCs # 0.00 Immature Plt Fraction 0.0 INR PT Patient/Control Mix Sodium 141 Potassium 4.4 Chloride 106 Carbon Dioxide 31 Anion Gap 8.4 BUN 19 H Creatinine 1.40 H GFR Calculation 77 BUN/Creatinine Ratio 13.00 Glucose 87 Calculated Osmolality 281.3 Calcium 8.7 Magnesium 2.3 Total Bilirubin AST ALT Alkaline Phosphatase Total Creatine Kinase 139 D CK-MB (CK-2) 2.4 Troponin I 0.020 B-Natriuretic Peptide Total Protein Albumin Globulin Albumin/Globulin Ratio Triglycerides Cholesterol LDL Cholesterol VLDL Cholesterol HDL Cholesterol Heart Disease Risk Ratio 03/31/17 03/31/17 04:04 08:16 WBC RBC Hgb Hct MCV MCH MCHC RDW Plt Count MPV Neut % (Auto) Lymph % (Auto) [place] % (Auto) Eos % (Auto) Baso % (Auto) Neut # (Auto) Lymph # (Auto) [place] # (Auto) Eos # (Auto) Baso # (Auto) Immature Gran % Nucleated RBC % Immature Gran # Nucleated RBCs # Immature Plt Fraction INR 1.1 PT Patient/Control Mix 11.1 Sodium Potassium Chloride Carbon Dioxide Anion Gap BUN Creatinine GFR Calculation BUN/Creatinine Ratio Glucose Calculated Osmolality Calcium Magnesium Total Bilirubin AST ALT Alkaline Phosphatase Total Creatine Kinase CK-MB (CK-2) Troponin I B-Natriuretic Peptide Total Protein Albumin Globulin Albumin/Globulin Ratio Triglycerides 200 H Cholesterol 117 LDL Cholesterol 62.0 VLDL Cholesterol 40.0 HDL Cholesterol 36 L Heart Disease Risk Ratio 3.25
[2017-03-31] MEDS ORDERED: ASPIRIN EC 325 MG TABLET PO SCH (09:00)
[2017-03-31] MEDS ORDERED: CLOPIDOGREL 75 MG TABLET PO SCH (09:00)
[2017-03-31] MEDS ORDERED: FUROSEMIDE 40 MG TABLET PO SCH (09:00)
[2017-03-31] MEDS ORDERED: LISINOPRIL 5 MG TABLET PO SCH (09:00)
[2017-03-31] MEDS ORDERED: LIDOCAINE 1% 20 ML VIAL ONE (13:26)
[2017-03-31] MEDS ORDERED: HEPARIN/NACL 0.9% 2 UNITS/ML 1,000 ML IV ONE (13:26)
[2017-03-31] MEDS ORDERED: HYDROmorphone 2 MG/1 ML VIAL ONE (13:31)
[2017-03-31] MEDS ORDERED: MIDAZOLAM 2 MG/2 ML VIAL ONE (13:36)
[2017-03-31] MEDS ORDERED: VERAPAMIL 5 MG/2 ML VIAL ONE (13:37)
[2017-03-31] MEDS ORDERED: NITROGLYCERIN DRIP 50 MG/250 ML BOTTLE IV ONE (13:37)
--- NOTE | 2017-03-31 15:20 | Event Note ---
Patient heart catheterization not reveal any new disease or abnormalities or changes. Says he still n.p.o. go ahead and get a gallbladder ultrasound if this is unremarkable he could potentially go home later today.
--- NOTE | 2017-03-31 17:43 | Discharge Summary ---
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 Greenberg SUMMARY: Mr. Palma is a 47 year old male with known history of coronary artery disease, routinely followed by Dr. Griffin. He has cardiac risk factors significant for: Known severe coronary artery disease, hypertension, family history of premature CAD, obesity, former smoker (quit in 2016) and dyslipidemia. He is a history of GERD, paroxysmal A. fib and ischemic cardiomyopathy. EF 40%. Presented to the ED March 30, 2017 with complaints of chest pain concerning for angina. March 31, 2017, patient underwent elective cardiac catheterization which revealed mild to moderate coronary artery disease. Previously stented areas appeared to be widely patent without any new high- grade lesions in need of intervention. Medical management was recommended. Patient underwent gallbladder ultrasound which revealed no significant abnormality. Having felt is met maximal medical therapy, patient is being discharged home in stable condition. He will be given a 2-3 week follow-up appoint with Dr. Griffin. Patient will resume all of his preadmission medications including the following: Aspirin 325 mg 1 p.o. daily Atorvastatin 80 mg orally each evening Clopidogrel 75 mg orally daily Multivite 40 mg orally twice daily Lasix 40 mg orally daily Lisinopril 5 mill grams orally daily Ranexa 1000 mg orally twice daily He will resume his other, noncardiac preadmission medications - Time spent with patient Time with patient DS: Greater than 30 minutes Diagnosis - Discharge Diagnosis (1) CKD (chronic kidney disease) stage 2, GFR 60-89 ml/min Status: Chronic (2) Chest pain Status: Acute (3) Coronary artery disease Status: Chronic (4) Dyslipidemia Status: Chronic (5) Essential hypertension Status: Chronic (6) Dyslipidemia Status: Chronic Specialty Discharge - Follow Up or Referrals Follow up with: Brett Griffin MD [Physician] - (2-3 weeks) Discharge Plan - Discharge Data Disposition: Disch To Home/Self Care Condition at Discharge: Stable Discharge Diet: heart healthy Activity: other (Post cath expectations) Hygiene: other (Post cath expected) Weight Bearing at Discharge: other (Post cath expected) Driving: other (Post cath expected) Contact your physician if you experience:: fever over 101, Difficulty voiding, Redness or swelling, Nausea/Vomiting, Shortness of breath, Bleeding, pain uncontrolled by pain medications - Discharge Medications New Baclofen Tab [Lioresal] 10 mg PO BID PRN tablet PRN Reason: Muscle Spasm Continue Nitroglycerin Sl Tab [Nitrostat] 0.4 mg SL Q5M PRN #25 tablet PRN Reason: Chest Pain Furosemide Tab [Lasix Tab] 40 mg PO DAILY Clopidogrel [Plavix] 75 mg PO DAILY Pantoprazole Tab [Protonix Tab] 40 mg PO BEDTIME Atorvastatin [Lipitor] 80 mg PO BEDTIME Lisinopril 5 mg PO DAILY Ranolazine [Ranexa] 1,000 mg PO BID #60 tablet Dronedarone [Multaq] 400 mg PO BID Clorazepate [Tranxene] 3.75 mg PO TID PRN PRN Reason: Anxiety Aspirin EC Tab 325 mg PO QAM HYDROcodone/ACETAMIN 5-325 [Anita 5-325] 1 tablet PO Q4H PRN PRN Reason: Pain Mild To Moderate (1-7) - Follow Up or Referral Follow Up: Brett Griffin MD [Physician] - (2-3 weeks) - Forms/Instructions Exam - Constitutional Vitals: Period Temp Pulse Resp BP Sys/Garrett Pulse Ox Last 24 Hr 97.4 F-98.6 F 60-75 18-20 103-147/61-96 93-97 Exam: General: [Appears well with no apparent distress.] [Pleasant and cooperative. ] [Appears comfortable.] HEENT: [PERRL, normocephalic, atraumatic. Mucous membranes moist. No jaundice noted. Conjunctiva moist and clear, sclerae anicteric] Neck: No JVD/HJR, no thyromegaly or lymphadenopathy noted. No carotid bruit appreciated Cardiac: [Regular rate and rhythm.] [No murmur rub or gallop.] Lungs: [Clear to auscultation without accessory muscle use to assist the respiratory pattern.] Not requiring oxygen Abdomen: Soft, bowel sounds normoactive. Nontender and nondistended. No abdominal bruit or thrill noted. No masses noted. Musculoskeletal: No fluid collection. Decreased range of motion is noted. Extremities: Right radial artery free of hematoma or bruit. No clubbing, cyanosis noted. [ No edema noted.] Upper extremity pulses 2+. Lower extremity pulses 2+. Capillary refill less than 3 seconds. Skin: No unusual lesions or rashes. No skin breakdown appreciated. Neuro: Awake, alert and oriented 3. Moves all extremities well without hemiparesis or paralysis. No essential tremor is appreciated. Discharge Results Procedures and tests throughout hospitalization: Pending Orders 03/30/17 13:08 Urinalysis Stat 03/31/17 08:28 CL heart Routine 04/01/17 04:00 BMP w/ Mg [Basic Metabolic Panel w/Mg] IN AM CBC [Comp Blood Count Auto Diff] IN AM Labs on day of discharge: Labs from last 24 hours 03/31/17 03/31/17 03/31/17 08:16 04:04 04:04 WBC RBC Hgb Hct MCV MCH MCHC RDW Plt Count MPV Neut % (Auto) Lymph % (Auto) [place] % (Auto) Eos % (Auto) Baso % (Auto) Neut # (Auto) Lymph # (Auto) [place] # (Auto) Eos # (Auto) Baso # (Auto) Immature Gran % Nucleated RBC % Immature Gran # Nucleated RBCs # Immature Plt Fraction INR 1.1 PT Patient/Control Mix 11.1 Sodium 141 Potassium 4.4 Chloride 106 Carbon Dioxide 31 Anion Gap 8.4 BUN 19 H Creatinine 1.40 H GFR Calculation 77 BUN/Creatinine Ratio 13.00 Glucose 87 Calculated Osmolality 281.3 Calcium 8.7 Magnesium 2.3 Total Creatine Kinase CK-MB (CK-2) Troponin I Triglycerides 200 H Cholesterol 117 LDL Cholesterol 62.0 VLDL Cholesterol 40.0 HDL Cholesterol 36 L Heart Disease Risk Ratio 3.25 03/31/17 03/30/17 04:04 20:57 WBC 6.8 RBC 4.31 Hgb 14.1 Hct 41.9 L MCV 97.2 MCH 33 MCHC 33.7 RDW 12.1 Plt Count 283 MPV 10.5 Neut % (Auto) 49.1 Lymph % (Auto) 31.0 [place] % (Auto) 13.4 H Eos % (Auto) 4.3 Baso % (Auto) 1.0 H Neut # (Auto) 3.3 Lymph # (Auto) 2.1 [place] # (Auto) 0.9 H Eos # (Auto) 0.3 Baso # (Auto) 0.1 Immature Gran % 1.2 Nucleated RBC % 0.0 Immature Gran # 0.08 Nucleated RBCs # 0.00 Immature Plt Fraction 0.0 INR PT Patient/Control Mix Sodium Potassium Chloride Carbon Dioxide Anion Gap BUN Creatinine GFR Calculation BUN/Creatinine Ratio Glucose Calculated Osmolality Calcium Magnesium Total Creatine Kinase 139 D CK-MB (CK-2) 2.4 Troponin I 0.020 Triglycerides Cholesterol LDL Cholesterol VLDL Cholesterol HDL Cholesterol Heart Disease Risk Ratio - Imaging and Cardiology Cardiology Procedure: report reviewed by me Procedure: Chest x-ray: report reviewed by me, Ultrasound: report reviewed by me DS: Provider Date of admission: 03/30/17 15:00 Primary care physician: . No PCP Attending physician on admission: Brett Griffin MD Discharging clinician: Gaby Moore NP Expected date of discharge: 03/31/17
--- NOTE | 2017-03-31 17:53 | Ultrasound Report ---
Exam: Ultrasound abdomen Limited, right upper quadrant Clinical History: 47 years Male abdominal pain radiating right upper quadrant Technique: Real-time ultrasound of the right upper quadrant with image documentation Comparison: No relevant comparisons Findings: Liver: Unremarkable as visualized. Gallbladder: Unremarkable. No stones. No wall thickening. No pericholecystic fluid. Common bile duct: Common bile duct is within normal limits Pancreas: Unremarkable as visualized Right kidney: Unremarkable. No hydronephrosis. No calyceal stones. Impression: 1. No sonographic abnormalities the right upper quadrant PROCEDURE INTERPRETED AT [facility] DEPARTMENT OF RADIOLOGY Final Report Signed by: Nate Trinidad MD
--- NOTE | 2017-03-31 18:46 | Event Note ---
Patient's gallbladder exam was normal without any evidence of disease. I discussed this with he and his . I do not think any change in his medications at this time. Also discussed that his last stent was 04/08/2016 indicating that he after another week or so could come off of the Plavix but then we should continue it. He certainly can come off of a as needed safely for procedures etc. we will proceed with discharge.
[2017-03-31 20:29] VITALS: BP 138/78
[2017-03-31] MEDS ORDERED: ENOXAPARIN 30 MG/0.3 ML SYRINGE SUBCUT SCH (21:00)
--- NOTE | 2017-04-04 05:29 | Order Completion Report ---
See report scanned to EMR
== END 2017-03-31 19:54 | disposition home or self-care (01) ==
LOC: N.ED 12:56 → N.EDINP 12:56 → N.TELES 16:10
PROVIDERS: ADMIT Internal Medicine Cardiovascular Disease; ATTEND Internal Medicine Cardiovascular Disease
PROC: CLCCHCL (ICD-10-PCS; 2017-03-31 13:45)

== ENCOUNTER 2017-04-25 12:42 | Observation (INO) ==
[2017-04-25] MEDS ORDERED: ONDANSETRON 4 MG/2 ML VIAL IV PRN (13:27)
[2017-04-25] MEDS ORDERED: ENOXAPARIN 100 MG/ML SYRINGE SUBCUT STA (13:27)
[2017-04-25] MEDS ORDERED: MORPHINE 2 MG/1 ML SYRINGE IV PRN (13:27)
[2017-04-25] MEDS ORDERED: ASPIRIN 325 MG TABLET PO STA (13:27)
[2017-04-25] MEDS ORDERED: ENOXAPARIN 100 MG/ML SYRINGE SUBCUT ONE (13:31)
[2017-04-25] MEDS ORDERED: ASPIRIN 325 MG TABLET ONE (13:31)
[2017-04-25 13:36] LABS: Basophils # 0.1 10*3/uL (0.0-0.2); Basophils % 0.9 % (0.0-0.8); Eosinophils # 0.2 10*3/uL (0.0-0.87); Eosinophils % 2.4 % (0.00-10.9); Hematocrit 43.3 VOL% (42.0-52.0); Hemoglobin 14.9 GM/DL (14.0-18.0); Immature Granulocytes % 1.2 %; Immature Granulocytes Absolute 0.09 #; Lymphocytes # 2.2 10*3/uL (1.4-4.0); Lymphocytes % 28.8 % (21.2-54.2); Mean Corpuscular HGB Conc 34.4 GM/DL (32-36); Mean Corpuscular Hemoglobin 33 PG (27-34); Mean Corpuscular Volume 96.9 FL (87-102); Mean Platelet Volume 10.2 FL (9.6-12.0); Monocytes # 1.1 10*3/uL (0.11-0.8); Monocytes % 14.3 % (1.7-12.7); Neutrophils % 52.4 % (38.7-73.9); Platelet Count 283 T/CUMM (130-400); Red Blood Count 4.47 MC/CUMM (3.8-5.5); Red Cell Distribution Width 12.5 % (9.3-17.3); White Blood Count 7.6 T/CUMM (4-12)
[2017-04-25 13:44] LABS: PT Patient Result 10.7 SECS; Partial Thromboplastin Time 22.8 SECS (0-40)
[2017-04-25 13:52] LABS: Bilirubin,Total 0.7 MG/DL (0.2-1.0); Calcium 8.9 MG/DL (8.5-10.1); Osmolality,Calculated 275.8 MOS/KG (273-304); Potassium 4.2 MMOL/L (3.5-5.1); Total Protein 7.3 G/DL (6.4-8.3)
[2017-04-25] MEDS ORDERED: ACETAMINOPHEN 325 MG TABLET PO PRN (15:46)
[2017-04-25] MEDS ORDERED: NITROGLYCERIN SL 0.4 MG TABLET SL PRN (15:50)
[2017-04-25] MEDS ORDERED: BACLOFEN 10 MG TABLET PO PRN (15:50)
[2017-04-25] MEDS ORDERED: ZALEPLON 5 MG CAPSULE PO PRN (16:07)
[2017-04-25] MEDS ORDERED: PANTOPRAZOLE 40 MG TABLET PO SCH (21:00)
[2017-04-25] MEDS: PANTOPRAZOLE 40 MG TABLET PO SCH (21:08)
[2017-04-25] MEDS: RANOLAZINE 500 MG TABLET PO SCH (21:08)
[2017-04-25] MEDS: ATORVASTATIN 80 MG TABLET PO SCH (21:08)
[2017-04-25] MEDS: DRONEDARONE 400 MG TABLET PO SCH (21:10)
[2017-04-26 03:45] LABS: Basophils # 0.1 10*3/uL (0.0-0.2); Basophils % 1.1 % (0.0-0.8); Eosinophils # 0.2 10*3/uL (0.0-0.87); Eosinophils % 3.1 % (0.00-10.9); Hematocrit 41.5 VOL% (42.0-52.0); Hemoglobin 14.3 GM/DL (14.0-18.0); Immature Granulocytes % 0.9 %; Immature Granulocytes Absolute 0.07 #; Lymphocytes # 2.8 10*3/uL (1.4-4.0); Lymphocytes % 36.5 % (21.2-54.2); Mean Corpuscular HGB Conc 34.5 GM/DL (32-36); Mean Corpuscular Hemoglobin 34 PG (27-34); Mean Corpuscular Volume 97.6 FL (87-102); Mean Platelet Volume 10.4 FL (9.6-12.0); Monocytes # 1.2 10*3/uL (0.11-0.8); Monocytes % 15.7 % (1.7-12.7); Neutrophils # 3.2 10*3/uL (1.4-7.4); Neutrophils % 42.7 % (38.7-73.9); Platelet Count 288 T/CUMM (130-400); Red Blood Count 4.25 MC/CUMM (3.8-5.5); Red Cell Distribution Width 12.9 % (9.3-17.3); White Blood Count 7.5 T/CUMM (4-12)
[2017-04-26 03:48] LABS: Calcium 8.9 MG/DL (8.5-10.1); Osmolality,Calculated 282.3 MOS/KG (273-304); Potassium 4.2 MMOL/L (3.5-5.1)
[2017-04-26 05:08] LABS: Eosinophils 2 % (0-10); Giant Platelets Few; Hypochromasia Slight; Lymphocytes 42 % (20-55); Platelet Estimate Adequate; Segmented Neutrophils 39 % (50-85); Total Cells Counted 100
[2017-04-26] MEDS: RANOLAZINE 500 MG TABLET PO SCH ×2 (08:26→20:23)
[2017-04-26] MEDS: DRONEDARONE 400 MG TABLET PO SCH ×2 (08:26→20:23)
[2017-04-26] MEDS: ASPIRIN EC 81 MG TABLET PO SCH (08:27)
[2017-04-26] MEDS: LISINOPRIL 5 MG TABLET PO SCH (08:27)
[2017-04-26] MEDS: FUROSEMIDE 40 MG TABLET PO SCH (08:27)
[2017-04-26] MEDS: PANTOPRAZOLE 40 MG TABLET PO SCH ×2 (08:28→20:23)
[2017-04-26] MEDS: CLOPIDOGREL 75 MG TABLET PO SCH (08:28)
[2017-04-26] MEDS ORDERED: PANTOPRAZOLE 40 MG TABLET PO SCH (09:00)
[2017-04-26] MEDS: ATORVASTATIN 80 MG TABLET PO SCH (20:23)
[2017-04-27] MEDS ORDERED: PROPOFOL 200 MG/20 ML VIAL IV ONE (11:33)
[2017-04-27] MEDS ORDERED: LIDOCAINE 2% 5 ML VIAL ONE (11:33)
[2017-04-27] MEDS: LISINOPRIL 5 MG TABLET PO SCH (12:40)
[2017-04-27] MEDS: DRONEDARONE 400 MG TABLET PO SCH (12:40)
[2017-04-27] MEDS: FUROSEMIDE 40 MG TABLET PO SCH (12:40)
[2017-04-27] MEDS: PANTOPRAZOLE 40 MG TABLET PO SCH (12:40)
[2017-04-27] MEDS: RANOLAZINE 500 MG TABLET PO SCH (12:40)
[2017-04-27] MEDS: CLOPIDOGREL 75 MG TABLET PO SCH (12:40)
[2017-04-27] MEDS: ASPIRIN EC 81 MG TABLET PO SCH (12:40)
[2017-04-27 12:47] VITALS: BP 136/83
[2017-04-27] MEDS ORDERED: AMITRIPTYLINE 25 MG TABLET PO SCH (21:00)
== END 2017-04-27 15:23 | disposition home or self-care (01) ==
LOC: N.EDINP 12:42 → N.ED 12:42 → N.EDINP 17:50 → N.TELEN 17:54
PROVIDERS: ADMIT Internal Medicine Cardiovascular Disease; ATTEND Internal Medicine Cardiovascular Disease

== ENCOUNTER 2018-05-24 11:54 | Observation (INO) ==
[2018-05-24] MEDS ORDERED: ASPIRIN 325 MG TABLET PO STA (12:42)
[2018-05-24] MEDS ORDERED: ENOXAPARIN 100 MG/ML SYRINGE SUBCUT STA (12:42)
[2018-05-24] MEDS ORDERED: NITROGLYCERIN 2% OINT 1 INCH/GM PACK TOP STA (12:42)
[2018-05-24] MEDS ORDERED: ONDANSETRON 4 MG/2 ML VIAL IV PRN (12:42)
[2018-05-24] MEDS ORDERED: ALUM/MAG/SIMETH/LIDO VISC 1:1 30 ML BOTTLE PO STA (12:42)
[2018-05-24] MEDS ORDERED: MORPHINE 4 MG/1 ML VIAL IV PRN (12:42)
[2018-05-24 13:04] LABS: Basophils # 0.1 10*3/uL (0.0-0.2); Basophils % 0.9 % (0.0-0.8); Eosinophils # 0.3 10*3/uL (0.0-0.87); Eosinophils % 4.1 % (0.00-10.9); Hematocrit 39.2 VOL% (42.0-52.0); Hemoglobin 13.2 GM/DL (14.0-18.0); Immature Granulocytes % 1.1 %; Immature Granulocytes Absolute 0.07 #; Lymphocytes # 2.1 10*3/uL (1.4-4.0); Lymphocytes % 32.4 % (21.2-54.2); Mean Corpuscular HGB Conc 33.7 GM/DL (32-36); Mean Corpuscular Hemoglobin 33 PG (27-34); Mean Platelet Volume 10.4 FL (9.6-12.0); Monocytes # 0.9 10*3/uL (0.11-0.8); Monocytes % 14.8 % (1.7-12.7); Neutrophils % 46.7 % (38.7-73.9); Platelet Count 256 T/CUMM (130-400); Red Blood Count 3.96 MC/CUMM (3.8-5.5); Red Cell Distribution Width 12.8 % (9.3-17.3); White Blood Count 6.4 T/CUMM (4-12)
[2018-05-24 13:12] LABS: PT Patient Result 10.4 SECS; Partial Thromboplastin Time 25.3 SECS (0-40)
[2018-05-24] MEDS ORDERED: ENOXAPARIN 120 MG/0.8 ML SYRINGE SUBCUT ONE (13:13)
[2018-05-24 13:33] LABS: Albumin 3.6 G/DL (3.4-5.0); Bilirubin,Total 0.5 MG/DL (0.2-1.0); Calcium 8.8 MG/DL (8.5-10.1); Osmolality,Calculated 283.3 MOS/KG (273-304); Potassium 3.8 MMOL/L (3.5-5.1); Total Protein 7.1 G/DL (6.4-8.3)
[2018-05-24] MEDS ORDERED: MAGNESIUM SULF RIDER 2 GM in PREMIX 1 EACH IV PRN (15:53)
[2018-05-24] MEDS ORDERED: ZALEPLON 5 MG CAPSULE PO PRN (15:53)
[2018-05-24] MEDS ORDERED: DOCUSATE SODIUM 100 MG CAPSULE PO PRN (15:53)
[2018-05-24] MEDS ORDERED: BISACODYL 5 MG TABLET PO PRN (15:53)
[2018-05-24] MEDS ORDERED: MAGNESIUM SULF RIDER 4 GM in PREMIX 1 EACH IV PRN (15:53)
[2018-05-24] MEDS ORDERED: POTASSIUM CHLORIDE 20 MEQ TABLET PO PRN (15:53)
[2018-05-24] MEDS ORDERED: diphenhydrAMINE CAP 25 MG CAPSULE PO PRN (15:53)
[2018-05-24] MEDS ORDERED: guaiFENesin/DM ER 600-30 MG TABLET PO PRN (15:53)
[2018-05-24] MEDS ORDERED: NITROGLYCERIN SL 0.4 MG TABLET SL PRN (15:56)
[2018-05-24] MEDS ORDERED: ENOXAPARIN 40 MG/0.4 ML SYRINGE SUBCUT SCH (17:00)
[2018-05-24] MEDS: LISINOPRIL 5 MG TABLET PO SCH (17:45)
[2018-05-24] MEDS: CLOPIDOGREL 75 MG TABLET PO SCH (17:45)
[2018-05-24] MEDS: FUROSEMIDE 20 MG TABLET PO SCH (17:46)
[2018-05-24 20:03] LABS: Troponin I < 0.015 NG/ML (0.00-0.045)
[2018-05-24] MEDS: METOPROLOL SUCCINATE XL 25 MG TABLET PO SCH (20:38)
[2018-05-24] MEDS: DRONEDARONE 400 MG TABLET PO SCH (20:38)
[2018-05-24] MEDS: RANOLAZINE 500 MG TABLET PO SCH (20:39)
[2018-05-24] MEDS ORDERED: ATORVASTATIN 80 MG TABLET PO SCH (21:00)
[2018-05-24] MEDS ORDERED: AMITRIPTYLINE 25 MG TABLET PO SCH (21:00)
[2018-05-24] MEDS ORDERED: PANTOPRAZOLE 40 MG TABLET PO SCH (21:00)
[2018-05-24 22:19] LABS: Troponin I < 0.015 NG/ML (0.00-0.045)
[2018-05-25 07:00] LABS: Basophils # 0.1 10*3/uL (0.0-0.2); Basophils % 1.1 % (0.0-0.8); Eosinophils # 0.3 10*3/uL (0.0-0.87); Eosinophils % 3.4 % (0.00-10.9); Hemoglobin 13.9 GM/DL (14.0-18.0); Immature Granulocytes % 1.2 %; Immature Granulocytes Absolute 0.09 #; Lymphocytes # 2.3 10*3/uL (1.4-4.0); Mean Corpuscular HGB Conc 33.1 GM/DL (32-36); Mean Corpuscular Hemoglobin 33 PG (27-34); Mean Corpuscular Volume 100.2 FL (87-102); Mean Platelet Volume 10.3 FL (9.6-12.0); Monocytes # 0.9 10*3/uL (0.11-0.8); Monocytes % 12.8 % (1.7-12.7); Neutrophils # 3.6 10*3/uL (1.4-7.4); Neutrophils % 49.5 % (38.7-73.9); Platelet Count 253 T/CUMM (130-400); Red Blood Count 4.19 MC/CUMM (3.8-5.5); Red Cell Distribution Width 12.9 % (9.3-17.3); White Blood Count 7.3 T/CUMM (4-12)
[2018-05-25 07:21] LABS: Calcium 8.9 MG/DL (8.5-10.1); Osmolality,Calculated 283.3 MOS/KG (273-304); Potassium 4.1 MMOL/L (3.5-5.1)
[2018-05-25 07:41] VITALS: BP 119/72
[2018-05-25] MEDS: RANOLAZINE 500 MG TABLET PO SCH (08:59)
[2018-05-25] MEDS ORDERED: BACLOFEN 10 MG TABLET PO SCH (09:00)
[2018-05-25] MEDS: DRONEDARONE 400 MG TABLET PO SCH (09:00)
[2018-05-25] MEDS: FUROSEMIDE 20 MG TABLET PO SCH (09:00)
[2018-05-25] MEDS: LISINOPRIL 5 MG TABLET PO SCH (09:00)
[2018-05-25] MEDS: CLOPIDOGREL 75 MG TABLET PO SCH (09:00)
[2018-05-25] MEDS ORDERED: ASPIRIN EC 325 MG TABLET PO SCH (09:00)
[2018-05-25] MEDS: METOPROLOL SUCCINATE XL 25 MG TABLET PO SCH (09:00)
[2018-05-25] MEDS ORDERED: PANTOPRAZOLE 40 MG TABLET PO SCH (09:00)
== END 2018-05-25 10:30 | disposition left against medical advice (07) ==
LOC: N.EDINP 11:54 → N.ED 11:54 → N.TELEN 16:53
PROVIDERS: ADMIT Internal Medicine Cardiovascular Disease; ATTEND Internal Medicine Cardiovascular Disease

== ENCOUNTER 2018-05-31 18:43 | Inpatient (IN) ==
[2018-05-31] MEDS ORDERED: ALUM/MAG/SIMETH/LIDO VISC 1:1 30 ML BOTTLE PO STA (20:15)
[2018-05-31] MEDS ORDERED: MORPHINE 4 MG/1 ML VIAL IV STA (20:15)
[2018-05-31] MEDS ORDERED: NITROGLYCERIN 2% OINT 1 INCH/GM PACK TOP STA (20:15)
[2018-05-31] MEDS ORDERED: ASPIRIN 325 MG TABLET PO STA (20:15)
[2018-05-31] MEDS ORDERED: ONDANSETRON 4 MG/2 ML VIAL IV STA (20:15)
[2018-05-31 20:25] LABS: Basophils # 0.1 10*3/uL (0.0-0.2); Eosinophils # 0.2 10*3/uL (0.0-0.87); Eosinophils % 3.3 % (0.00-10.9); Hematocrit 42.4 VOL% (42.0-52.0); Hemoglobin 13.9 GM/DL (14.0-18.0); Immature Granulocytes % 1.1 %; Immature Granulocytes Absolute 0.08 #; Lymphocytes # 1.9 10*3/uL (1.4-4.0); Lymphocytes % 25.6 % (21.2-54.2); Mean Corpuscular HGB Conc 32.8 GM/DL (32-36); Mean Corpuscular Hemoglobin 33 PG (27-34); Mean Corpuscular Volume 99.8 FL (87-102); Mean Platelet Volume 10.5 FL (9.6-12.0); Monocytes # 1.2 10*3/uL (0.11-0.8); Monocytes % 16.7 % (1.7-12.7); Neutrophils # 3.8 10*3/uL (1.4-7.4); Neutrophils % 52.3 % (38.7-73.9); Platelet Count 257 T/CUMM (130-400); Red Blood Count 4.25 MC/CUMM (3.8-5.5); Red Cell Distribution Width 12.9 % (9.3-17.3); White Blood Count 7.2 T/CUMM (4-12)
[2018-05-31 20:41] LABS: PT Patient Result 10.6 SECS
[2018-05-31 20:47] LABS: Albumin 3.9 G/DL (3.4-5.0); Bilirubin,Total 0.7 MG/DL (0.2-1.0); Calcium 8.7 MG/DL (8.5-10.1); Osmolality,Calculated 280.5 MOS/KG (273-304); Potassium 4.6 MMOL/L (3.5-5.1); Total Protein 7.5 G/DL (6.4-8.3)
[2018-05-31 21:12] LABS: Eosinophils 4 % (0-10); Lymphocytes 22 % (20-55); Segmented Neutrophils 61 % (50-85); Total Cells Counted 100
[2018-05-31 21:13] LABS: Platelet Estimate Normal
[2018-05-31] MEDS ORDERED: MAGNESIUM SULF RIDER 4 GM in PREMIX 1 EACH IV PRN (22:24)
[2018-05-31] MEDS ORDERED: SODIUM CHLORIDE 0.9% 1,000 ML IV SCH (22:24)
[2018-05-31] MEDS ORDERED: MAGNESIUM SULF RIDER 2 GM in PREMIX 1 EACH IV PRN (22:24)
[2018-05-31] MEDS ORDERED: MORPHINE 4 MG/1 ML VIAL IV PRN (22:24)
[2018-05-31] MEDS ORDERED: ONDANSETRON 4 MG/2 ML VIAL IV PRN (22:24)
[2018-05-31] MEDS ORDERED: NITROGLYCERIN SL 0.4 MG TABLET SL PRN (22:24)
[2018-05-31] MEDS ORDERED: POTASSIUM CHLORIDE 20 MEQ TABLET PO PRN (22:24)
[2018-05-31] MEDS: NITROGLYCERIN 2% OINT 1 INCH/GM PACK TOP SCH (23:35)
[2018-05-31] MEDS: ENOXAPARIN 120 MG/0.8 ML SYRINGE SUBCUT SCH (23:35)
[2018-06-01 05:47] LABS: Basophils # 0.1 10*3/uL (0.0-0.2); Basophils % 0.8 % (0.0-0.8); Eosinophils # 0.2 10*3/uL (0.0-0.87); Eosinophils % 3.8 % (0.00-10.9); Hematocrit 40.6 VOL% (42.0-52.0); Hemoglobin 13.4 GM/DL (14.0-18.0); Immature Granulocytes % 1.2 %; Immature Granulocytes Absolute 0.07 #; Lymphocytes # 1.9 10*3/uL (1.4-4.0); Lymphocytes % 31.9 % (21.2-54.2); Mean Corpuscular Hemoglobin 33 PG (27-34); Mean Corpuscular Volume 99.8 FL (87-102); Mean Platelet Volume 10.6 FL (9.6-12.0); Monocytes # 1.1 10*3/uL (0.11-0.8); Monocytes % 18.9 % (1.7-12.7); Neutrophils # 2.6 10*3/uL (1.4-7.4); Neutrophils % 43.4 % (38.7-73.9); Platelet Count 247 T/CUMM (130-400); Red Blood Count 4.07 MC/CUMM (3.8-5.5)
[2018-06-01 06:09] LABS: Albumin 3.4 G/DL (3.4-5.0); Bilirubin,Total 1.1 MG/DL (0.2-1.0); Calcium 8.5 MG/DL (8.5-10.1); Osmolality,Calculated 285.1 MOS/KG (273-304); Potassium 3.8 MMOL/L (3.5-5.1); Risk Ratio 3.51; Total Protein 6.6 G/DL (6.4-8.3); VLDL CHOLESTEROL 60.2 MG/DL
[2018-06-01] MEDS: NITROGLYCERIN 2% OINT 1 INCH/GM PACK TOP SCH ×3 (06:17→18:07)
[2018-06-01] MEDS ORDERED: DIAZEPAM 5 MG TABLET PO ONE (07:43)
[2018-06-01] MEDS ORDERED: diphenhydrAMINE CAP 25 MG CAPSULE PO ONE (07:43)
[2018-06-01] MEDS ORDERED: POTASSIUM CHLORIDE RIDER 10 MEQ in PREMIX 1 EACH IV PRN (07:43)
[2018-06-01] MEDS ORDERED: diphenhydrAMINE CAP 50 MG CAPSULE ONE (07:48)
[2018-06-01] MEDS ORDERED: DIAZEPAM 5 MG TABLET ONE (07:49)
[2018-06-01] MEDS ORDERED: ASPIRIN 325 MG TABLET ONE (07:50)
[2018-06-01] MEDS: ENOXAPARIN 120 MG/0.8 ML SYRINGE SUBCUT SCH ×3 (07:56→22:40)
[2018-06-01] MEDS: CLOPIDOGREL 75 MG TABLET PO SCH ×2 (07:56→09:26)
[2018-06-01] MEDS: PANTOPRAZOLE 40 MG TABLET PO SCH ×3 (07:57→21:07)
[2018-06-01] MEDS: FUROSEMIDE 20 MG TABLET PO SCH ×2 (07:57→09:26)
[2018-06-01] MEDS: ASPIRIN EC 325 MG TABLET PO SCH (07:57)
[2018-06-01] MEDS: BACLOFEN 10 MG TABLET PO SCH ×2 (07:57→09:26)
[2018-06-01] MEDS: LISINOPRIL 5 MG TABLET PO SCH ×2 (07:58→09:27)
[2018-06-01] MEDS: SODIUM CHLORIDE 0.9% 1,000 ML IV SCH ×2 (07:58→16:13)
[2018-06-01] MEDS ORDERED: LIDOCAINE 1% 20 ML VIAL ONE (08:27)
[2018-06-01] MEDS ORDERED: NITROGLYCERIN DRIP 50 MG/250 ML BOTTLE IV ONE (08:27)
[2018-06-01] MEDS ORDERED: VERAPAMIL 5 MG/2 ML VIAL ONE (08:27)
[2018-06-01] MEDS ORDERED: MIDAZOLAM 2 MG/2 ML VIAL ONE ×2 (08:28→09:29)
[2018-06-01] MEDS ORDERED: fentaNYL 100 MCG/2 ML VIAL ONE (08:28)
[2018-06-01 08:40] LABS: Eosinophils 3 % (0-10); Hypochromasia 1+; Lymphocytes 38 % (20-55); Platelet Estimate Adequate; Segmented Neutrophils 50 % (50-85); Total Cells Counted 100
[2018-06-01] MEDS: METOPROLOL SUCCINATE XL 25 MG TABLET PO SCH ×2 (10:13→21:07)
[2018-06-01] MEDS: RANOLAZINE 500 MG TABLET PO SCH ×2 (10:16→21:07)
[2018-06-01] MEDS: DRONEDARONE 400 MG TABLET PO SCH ×2 (10:16→21:07)
[2018-06-01] MEDS ORDERED: ATORVASTATIN 80 MG TABLET PO SCH (21:00)
[2018-06-01] MEDS ORDERED: AMITRIPTYLINE 25 MG TABLET PO SCH (21:00)
[2018-06-02] MEDS: SODIUM CHLORIDE 0.9% 1,000 ML IV SCH ×2 (01:23→13:15)
[2018-06-02] MEDS: NITROGLYCERIN 2% OINT 1 INCH/GM PACK TOP SCH ×3 (01:23→13:14)
[2018-06-02] MEDS ORDERED: ENOXAPARIN 40 MG/0.4 ML SYRINGE SUBCUT SCH (04:00)
[2018-06-02] MEDS ORDERED: PROPOFOL 200 MG/20 ML VIAL IV ONE (09:00)
[2018-06-02] MEDS ORDERED: LIDOCAINE 1% 5 ML VIAL ONE (09:00)
[2018-06-02] MEDS: CLOPIDOGREL 75 MG TABLET PO SCH (12:37)
[2018-06-02] MEDS: ENOXAPARIN 120 MG/0.8 ML SYRINGE SUBCUT SCH (12:37)
[2018-06-02 13:11] VITALS: BP 132/85
[2018-06-02] MEDS: LISINOPRIL 5 MG TABLET PO SCH (13:12)
[2018-06-02] MEDS: RANOLAZINE 500 MG TABLET PO SCH (13:12)
[2018-06-02] MEDS: BACLOFEN 10 MG TABLET PO SCH (13:13)
[2018-06-02] MEDS: ASPIRIN EC 325 MG TABLET PO SCH (13:13)
[2018-06-02] MEDS: DRONEDARONE 400 MG TABLET PO SCH (13:13)
[2018-06-02] MEDS: METOPROLOL SUCCINATE XL 25 MG TABLET PO SCH (13:13)
[2018-06-02] MEDS: PANTOPRAZOLE 40 MG TABLET PO SCH (13:13)
[2018-06-02] MEDS: FUROSEMIDE 20 MG TABLET PO SCH (13:13)
== END 2018-06-02 16:30 | disposition home or self-care (01) | DRG 287 ==
LOC: N.ED 18:43 → N.EDINP 21:24 → N.TELEN 21:53
PROVIDERS: ADMIT Internal Medicine Cardiovascular Disease; ATTEND Internal Medicine Cardiovascular Disease
PROC: CLCCHCL (ICD-10-PCS; 2018-06-01 08:45)

== ENCOUNTER 2018-10-09 09:49 | Observation (INO) ==
[2018-10-09] MEDS ORDERED: NITROGLYCERIN 2% OINT 1 INCH/GM PACK TOP STA (10:08)
[2018-10-09] MEDS ORDERED: MORPHINE 4 MG/1 ML VIAL IV STA (10:08)
[2018-10-09] MEDS ORDERED: ALUM/MAG/SIMETH/LIDO VISC 1:1 30 ML BOTTLE PO STA (10:08)
[2018-10-09] MEDS ORDERED: ONDANSETRON 4 MG/2 ML VIAL IV STA (10:08)
[2018-10-09] MEDS ORDERED: ASPIRIN 325 MG TABLET PO STA (10:08)
[2018-10-09 10:45] LABS: Basophils # 0.1 10*3/uL (0.0-0.2); Eosinophils # 0.2 10*3/uL (0.0-0.87); Eosinophils % 3.2 % (0.00-10.9); Hematocrit 42.5 VOL% (42.0-52.0); Hemoglobin 13.7 GM/DL (14.0-18.0); Immature Granulocytes % 0.8 %; Immature Granulocytes Absolute 0.05 #; Lymphocytes # 1.8 10*3/uL (1.4-4.0); Lymphocytes % 28.7 % (21.2-54.2); Mean Corpuscular HGB Conc 32.2 GM/DL (32-36); Mean Corpuscular Hemoglobin 33 PG (27-34); Mean Corpuscular Volume 101.2 FL (87-102); Mean Platelet Volume 10.4 FL (9.6-12.0); Monocytes # 0.9 10*3/uL (0.11-0.8); Monocytes % 14.6 % (1.7-12.7); Neutrophils # 3.2 10*3/uL (1.4-7.4); Neutrophils % 51.7 % (38.7-73.9); Platelet Count 238 T/CUMM (130-400); Red Cell Distribution Width 12.7 % (9.3-17.3); White Blood Count 6.2 T/CUMM (4-12)
[2018-10-09 10:53] LABS: PT Patient Result 10.4 SECS
[2018-10-09 11:15] LABS: Bilirubin,Total 0.6 MG/DL (0.2-1.0); Osmolality,Calculated 286.1 MOS/KG (273-304); Potassium 4.3 MMOL/L (3.5-5.1); Total Protein 7.2 G/DL (6.4-8.3)
[2018-10-09] MEDS ORDERED: ZALEPLON 5 MG CAPSULE PO PRN (14:15)
[2018-10-09] MEDS ORDERED: DOCUSATE SODIUM 100 MG CAPSULE PO PRN (14:15)
[2018-10-09] MEDS ORDERED: MAGNESIUM SULF RIDER 2 GM in PREMIX 1 EACH IV PRN ×2 (14:15→15:06)
[2018-10-09] MEDS ORDERED: ACETAMINOPHEN 325 MG TABLET PO PRN (14:15)
[2018-10-09] MEDS ORDERED: POTASSIUM CHLORIDE 20 MEQ TABLET PO PRN ×2 (14:15→15:06)
[2018-10-09] MEDS ORDERED: MAGNESIUM SULF RIDER 4 GM in PREMIX 1 EACH IV PRN ×2 (14:15→15:06)
[2018-10-09] MEDS ORDERED: ENOXAPARIN 30 MG/0.3 ML SYRINGE SUBCUT SCH (14:30)
[2018-10-09] MEDS ORDERED: ONDANSETRON 4 MG/2 ML VIAL IV PRN (15:06)
[2018-10-09] MEDS ORDERED: NITROGLYCERIN SL 0.4 MG TABLET SL PRN (15:06)
[2018-10-09] MEDS ORDERED: MORPHINE 4 MG/1 ML VIAL IV PRN (15:06)
[2018-10-09] MEDS: SODIUM CHLORIDE 0.9% 1,000 ML IV SCH (15:44)
[2018-10-09 17:31] LABS: Troponin I 0.019 NG/ML (0.00-0.045)
[2018-10-09] MEDS ORDERED: PANTOPRAZOLE 40 MG TABLET PO SCH (21:00)
[2018-10-09] MEDS ORDERED: ATORVASTATIN 80 MG TABLET PO SCH (21:00)
[2018-10-09] MEDS ORDERED: AMITRIPTYLINE 25 MG TABLET PO SCH (21:00)
[2018-10-09] MEDS: ENOXAPARIN 100 MG/ML SYRINGE SUBCUT SCH (22:11)
[2018-10-09] MEDS: RANOLAZINE 500 MG TABLET PO SCH (22:12)
[2018-10-09] MEDS: METOPROLOL SUCCINATE XL 25 MG TABLET PO SCH (22:12)
[2018-10-09] MEDS: PANTOPRAZOLE 40 MG TABLET PO SCH (22:12)
[2018-10-09] MEDS: DRONEDARONE 400 MG TABLET PO SCH (22:12)
[2018-10-09 22:13] LABS: Troponin I 0.019 NG/ML (0.00-0.045)
[2018-10-10 04:29] LABS: Basophils # 0.1 10*3/uL (0.0-0.2); Basophils % 0.9 % (0.0-0.8); Eosinophils # 0.2 10*3/uL (0.0-0.87); Eosinophils % 3.3 % (0.00-10.9); Hematocrit 41.5 VOL% (42.0-52.0); Hemoglobin 12.9 GM/DL (14.0-18.0); Immature Granulocytes % 0.6 %; Immature Granulocytes Absolute 0.04 #; Lymphocytes # 2.6 10*3/uL (1.4-4.0); Lymphocytes % 38.7 % (21.2-54.2); Mean Corpuscular HGB Conc 31.1 GM/DL (32-36); Mean Corpuscular Hemoglobin 32 PG (27-34); Mean Platelet Volume 10.6 FL (9.6-12.0); Monocytes # 0.8 10*3/uL (0.11-0.8); Monocytes % 11.6 % (1.7-12.7); Neutrophils % 44.9 % (38.7-73.9); Platelet Count 235 T/CUMM (130-400); Red Blood Count 3.99 MC/CUMM (3.8-5.5); White Blood Count 6.6 T/CUMM (4-12)
[2018-10-10 04:43] LABS: Albumin 3.5 G/DL (3.4-5.0); Bilirubin,Total 1.2 MG/DL (0.2-1.0); Calcium 8.7 MG/DL (8.5-10.1); Osmolality,Calculated 285.1 MOS/KG (273-304); Potassium 4.3 MMOL/L (3.5-5.1); Risk Ratio 3.24; Total Protein 6.4 G/DL (6.4-8.3)
[2018-10-10] MEDS: ENOXAPARIN 100 MG/ML SYRINGE SUBCUT SCH (06:51)
[2018-10-10] MEDS: SODIUM CHLORIDE 0.9% 1,000 ML IV SCH (07:35)
[2018-10-10] MEDS ORDERED: LISINOPRIL 5 MG TABLET PO SCH (09:00)
[2018-10-10] MEDS ORDERED: CLOPIDOGREL 75 MG TABLET PO SCH (09:00)
[2018-10-10] MEDS ORDERED: FUROSEMIDE 20 MG TABLET PO SCH (09:00)
[2018-10-10] MEDS ORDERED: ASPIRIN EC 325 MG TABLET PO SCH (09:00)
[2018-10-10] MEDS ORDERED: BACLOFEN 10 MG TABLET PO SCH (09:00)
[2018-10-10 11:56] VITALS: BP 128/77
[2018-10-10] MEDS: DRONEDARONE 400 MG TABLET PO SCH (12:53)
[2018-10-10] MEDS: RANOLAZINE 500 MG TABLET PO SCH (12:53)
[2018-10-10] MEDS: METOPROLOL SUCCINATE XL 25 MG TABLET PO SCH (12:54)
[2018-10-10] MEDS: PANTOPRAZOLE 40 MG TABLET PO SCH (12:54)
== END 2018-10-10 15:32 | disposition home or self-care (01) ==
LOC: N.EDINP 09:49 → N.ED 09:49 → N.EDINP 16:40 → N.TELEN 16:54
PROVIDERS: ADMIT Internal Medicine Cardiovascular Disease; ATTEND Internal Medicine Cardiovascular Disease

== ENCOUNTER 2020-10-26 10:38 | Inpatient (IN) ==
[~2020-10-26 10:38] MED LIST: AMIODARONE INJ 150 MG in DEXTROSE 5% 100 ML IV ONE
[2020-10-26] MEDS ORDERED: FUROSEMIDE 40 MG/4 ML VIAL IV STA (11:26)
[2020-10-26 11:38] LABS: Basophils % 0.3 % (0.0-0.8); Eosinophils % 0.4 % (0.00-10.9); Hematocrit 35.4 VOL% (42.0-52.0); Hemoglobin 11.4 GM/DL (14.0-18.0); Immature Granulocytes % 0.7 %; Immature Granulocytes Absolute 0.05 #; Lymphocytes # 0.8 10*3/uL (1.4-4.0); Lymphocytes % 11.6 % (21.2-54.2); Mean Corpuscular HGB Conc 32.2 GM/DL (32-36); Mean Corpuscular Volume 104.1 FL (87-102); Mean Platelet Volume 10.7 FL (9.6-12.0); Monocytes % 13.6 % (1.7-12.7); Neutrophils % 73.4 % (38.7-73.9); Platelet Count 172 T/CUMM (130-400); White Blood Count 7.1 T/CUMM (4-12)
[2020-10-26] MEDS ORDERED: ONDANSETRON 4 MG/2 ML VIAL IV STA (11:47)
[2020-10-26] MEDS ORDERED: ONDANSETRON 4 MG/2 ML VIAL ONE (11:47)
[2020-10-26 11:57] LABS: Calcium 8.4 MG/DL (8.5-10.1); Osmolality,Calculated 274.2 MOS/KG (273-304)
[2020-10-26] MEDS ORDERED: ZALEPLON 5 MG CAPSULE PO PRN (14:06)
[2020-10-26] MEDS ORDERED: MAGNESIUM SULF RIDER 4 GM/100 ML PREMIX IV PRN (14:06)
[2020-10-26] MEDS ORDERED: MORPHINE 4 MG/1 ML VIAL IV PRN (14:06)
[2020-10-26] MEDS ORDERED: MAGNESIUM SULF RIDER 2 GM/50 ML PREMIX IV PRN (14:06)
[2020-10-26] MEDS ORDERED: BACLOFEN 10 MG TABLET PO PRN (14:08)
[2020-10-26] MEDS ORDERED: NITROGLYCERIN SL 0.4 MG TABLET SL PRN (14:08)
[2020-10-26] MEDS ORDERED: SODIUM CHLORIDE 0.45% 1,000 ML IV SCH (14:30)
[2020-10-26] MEDS ORDERED: ALBUTEROL 2.5 MG/3 ML NEB RESP TX PRN (14:43)
[2020-10-26] MEDS ORDERED: AMIODARONE INJ 450 MG in DEXTROSE 5% 241 ML IV SCH (15:00)
[2020-10-26] MEDS ORDERED: FUROSEMIDE 40 MG/4 ML VIAL IV SCH (16:00)
[2020-10-26] MEDS ORDERED: AMIODARONE 150 MG/3 ML VIAL ONE (16:15)
[2020-10-26] MEDS ORDERED: AMIODARONE INJ 150 MG in DEXTROSE 5% 100 ML IV ONE (16:16)
[2020-10-26] MEDS: RANOLAZINE 500 MG TABLET PO SCH (21:46)
[2020-10-26] MEDS: ASCORBIC ACID 500 MG TABLET PO SCH (21:46)
[2020-10-26] MEDS: ATORVASTATIN 80 MG TABLET PO SCH (22:49)
[2020-10-26] MEDS: AMIODARONE INJ 450 MG in DEXTROSE 5% 241 ML IV SCH (22:51)
[2020-10-26] MEDS: ONDANSETRON 4 MG/2 ML VIAL IV PRN (22:57)
[2020-10-27 06:34] LABS: Risk Ratio 2.31; VLDL CHOLESTEROL 13.4 MG/DL
[2020-10-27] MEDS ORDERED: ALUMINUM/MAGNES/SIMETH MAX STR 30 ML UDCUP PO PRN (07:58)
[2020-10-27] MEDS: metOLazone 5 MG TABLET PO SCH (08:52)
[2020-10-27] MEDS: ASCORBIC ACID 500 MG TABLET PO SCH ×2 (08:52→21:06)
[2020-10-27] MEDS: FUROSEMIDE 40 MG/4 ML VIAL IV SCH ×2 (08:52→16:13)
[2020-10-27] MEDS: CHOLECALCIFEROL 5,000 UNIT TABLET PO SCH (08:53)
[2020-10-27] MEDS: CLOPIDOGREL 75 MG TABLET PO SCH (08:53)
[2020-10-27] MEDS: PARoxetine 20 MG TABLET PO SCH (08:53)
[2020-10-27] MEDS: RIVAROXABAN 20 MG TABLET PO SCH (08:53)
[2020-10-27] MEDS: METOPROLOL SUCCINATE XL 25 MG TABLET PO SCH (08:53)
[2020-10-27] MEDS: RANOLAZINE 500 MG TABLET PO SCH ×2 (08:53→21:06)
[2020-10-27 08:59] LABS: Albumin 3.6 G/DL (3.4-5.0); Bilirubin,Total 4.6 MG/DL (0.2-1.0); Calcium 8.7 MG/DL (8.5-10.1); Osmolality,Calculated 271.7 MOS/KG (273-304); Potassium 4.8 MMOL/L (3.5-5.1); Total Protein 6.7 G/DL (6.4-8.2)
[2020-10-27] MEDS: ATORVASTATIN 80 MG TABLET PO SCH (21:06)
[2020-10-27] MEDS: AMIODARONE INJ 450 MG in DEXTROSE 5% 241 ML IV SCH (21:07)
[2020-10-28 06:07] LABS: Albumin 3.4 G/DL (3.4-5.0); Calcium 8.5 MG/DL (8.5-10.1); Osmolality,Calculated 273.8 MOS/KG (273-304); Potassium 3.1 MMOL/L (3.5-5.1); Total Protein 6.4 G/DL (6.4-8.2)
[2020-10-28] MEDS ORDERED: propofoL 200 MG/20 ML VIAL IV ONE (07:38)
[2020-10-28] MEDS ORDERED: POTASSIUM CHLORIDE 20 MEQ TABLET PO ONE ×2 (07:38→14:00)
[2020-10-28] MEDS ORDERED: ETOMIDATE 20 MG/10 ML VIAL IV ONE (07:38)
[2020-10-28] MEDS: SODIUM CHLORIDE 0.9% 1,000 ML IV SCH ×2 (07:43→08:49)
[2020-10-28] MEDS: AMIODARONE INJ 450 MG in DEXTROSE 5% 241 ML IV SCH (07:46)
[2020-10-28] MEDS: RIVAROXABAN 20 MG TABLET PO SCH (08:47)
[2020-10-28] MEDS: FUROSEMIDE 40 MG/4 ML VIAL IV SCH ×2 (08:47→16:16)
[2020-10-28] MEDS: PARoxetine 20 MG TABLET PO SCH (08:48)
[2020-10-28] MEDS: ASCORBIC ACID 500 MG TABLET PO SCH ×2 (08:48→20:38)
[2020-10-28] MEDS: AMIODARONE 200 MG TABLET PO SCH ×2 (08:48→20:38)
[2020-10-28] MEDS: RANOLAZINE 500 MG TABLET PO SCH ×2 (08:48→20:38)
[2020-10-28] MEDS: CHOLECALCIFEROL 5,000 UNIT TABLET PO SCH (08:48)
[2020-10-28] MEDS: CLOPIDOGREL 75 MG TABLET PO SCH (08:48)
[2020-10-28] MEDS: metOLazone 5 MG TABLET PO SCH (08:49)
[2020-10-28] MEDS: METOPROLOL SUCCINATE XL 25 MG TABLET PO SCH (08:49)
[2020-10-28] MEDS: ONDANSETRON 4 MG/2 ML VIAL IV PRN (11:15)
[2020-10-28] MEDS ORDERED: diphenhydrAMINE CAP 25 MG CAPSULE PO ONE (15:51)
[2020-10-28] MEDS: ATORVASTATIN 80 MG TABLET PO SCH (20:38)
[2020-10-29 05:43] LABS: Basophils # 0.1 10*3/uL (0.0-0.2); Basophils % 0.4 % (0.0-0.8); Eosinophils % 0.1 % (0.00-10.9); Hematocrit 36.6 VOL% (42.0-52.0); Hemoglobin 12.2 GM/DL (14.0-18.0); Immature Granulocytes % 2.7 %; Immature Granulocytes Absolute 0.38 #; Lymphocytes # 0.7 10*3/uL (1.4-4.0); Lymphocytes % 4.9 % (21.2-54.2); Mean Corpuscular HGB Conc 33.3 GM/DL (32-36); Mean Corpuscular Volume 101.4 FL (87-102); Mean Platelet Volume 12.2 FL (9.6-12.0); Monocytes % 11.5 % (1.7-12.7); NRBC # 0.03 10*3/uL; Neutrophils % 80.4 % (38.7-73.9); Platelet Count 116 T/CUMM (130-400); Red Blood Count 3.61 MC/CUMM (3.8-5.5); Red Cell Distribution Width 14.3 % (9.3-17.3)
[2020-10-29 06:06] LABS: Hypochromasia 1+; Polychromasia Slight
[2020-10-29 06:07] LABS: Calcium 8.5 MG/DL (8.5-10.1); Microcytosis 1+; Osmolality,Calculated 275.4 MOS/KG (273-304); Ovalocytes Few; Platelet Estimate Adequate; Potassium 4.6 MMOL/L (3.5-5.1)
[2020-10-29] MEDS ORDERED: SODIUM CHLORIDE 0.9% 1,000 ML IV SCH (07:30)
[2020-10-29] MEDS: RIVAROXABAN 20 MG TABLET PO SCH (09:16)
[2020-10-29] MEDS: ASCORBIC ACID 500 MG TABLET PO SCH ×2 (09:16→21:28)
[2020-10-29] MEDS: PARoxetine 20 MG TABLET PO SCH (09:16)
[2020-10-29] MEDS: CHOLECALCIFEROL 5,000 UNIT TABLET PO SCH (09:17)
[2020-10-29] MEDS: AMIODARONE 200 MG TABLET PO SCH ×2 (09:17→21:28)
[2020-10-29] MEDS: RANOLAZINE 500 MG TABLET PO SCH ×2 (09:17→21:29)
[2020-10-29] MEDS: CLOPIDOGREL 75 MG TABLET PO SCH (09:17)
[2020-10-29] MEDS: DOBUTamine 500 MG/250 ML PREMIX IV SCH (09:23)
[2020-10-29 10:33] LABS: Bilirubin,Direct 2.89 MG/DL (0.0-0.20); Bilirubin,Indirect 4.1 MG/DL (0.0-1.0); Total Protein 7.3 G/DL (6.4-8.2)
[2020-10-29] MEDS: PANTOPRAZOLE 40 MG TABLET PO SCH (14:02)
[2020-10-29] MEDS: ONDANSETRON 4 MG/2 ML VIAL IV PRN (14:02)
[2020-10-29] MEDS: ATORVASTATIN 80 MG TABLET PO SCH (21:29)
[2020-10-30] MEDS: DOBUTamine 500 MG/250 ML PREMIX IV SCH (03:34)
[2020-10-30 06:27] LABS: Basophils % 0.2 % (0.0-0.8); Hematocrit 30.9 VOL% (42.0-52.0); Hemoglobin 10.6 GM/DL (14.0-18.0); Immature Granulocytes % 3.6 %; Immature Granulocytes Absolute 0.46 #; Lymphocytes # 0.6 10*3/uL (1.4-4.0); Lymphocytes % 4.6 % (21.2-54.2); Mean Corpuscular HGB Conc 34.3 GM/DL (32-36); Mean Corpuscular Volume 98.7 FL (87-102); Mean Platelet Volume 13.1 FL (9.6-12.0); Monocytes % 9.5 % (1.7-12.7); Neutrophils % 82.1 % (38.7-73.9); Red Blood Count 3.13 MC/CUMM (3.8-5.5); Red Cell Distribution Width 13.9 % (9.3-17.3); White Blood Count 12.7 T/CUMM (4-12)
[2020-10-30 06:29] LABS: Calcium 6.6 MG/DL (8.5-10.1); Osmolality,Calculated 278.9 MOS/KG (273-304); Potassium 4.2 MMOL/L (3.5-5.1)
[2020-10-30 06:32] LABS: Albumin 3.2 G/DL (3.4-5.0); Bilirubin,Direct 3.94 MG/DL (0.0-0.20); Bilirubin,Indirect 2.5 MG/DL (0.0-1.0); Bilirubin,Total 6.4 MG/DL (0.2-1.0); Total Protein 6.1 G/DL (6.4-8.2)
[2020-10-30 06:33] LABS: Platelet Count 69 T/CUMM (130-400)
[2020-10-30 06:36] LABS: Band Neutrophils 1 % (0-10); Burr Cells Slight; Hypochromasia Slight; Lymphocytes 4 % (20-55); Microcytosis Slight; Platelet Estimate Decreased; Segmented Neutrophils 86 % (50-85); Total Cells Counted 100
[2020-10-30] MEDS ORDERED: diphenhydrAMINE CAP 25 MG CAPSULE PO ONE (09:34)
[2020-10-30] MEDS ORDERED: DIAZEPAM 5 MG TABLET PO ONE (09:34)
[2020-10-30] MEDS: PANTOPRAZOLE 40 MG TABLET PO SCH (09:56)
[2020-10-30] MEDS: CHOLECALCIFEROL 5,000 UNIT TABLET PO SCH (09:56)
[2020-10-30] MEDS: ASCORBIC ACID 500 MG TABLET PO SCH ×2 (09:56→21:53)
[2020-10-30] MEDS: PARoxetine 20 MG TABLET PO SCH (10:02)
[2020-10-30] MEDS ORDERED: PROMETHAZINE 25 MG/1 ML VIAL ONE (10:39)
[2020-10-30] MEDS ORDERED: LIDOCAINE 1% 20 ML VIAL ONE (10:41)
[2020-10-30] MEDS ORDERED: MIDAZOLAM 2 MG/2 ML VIAL ONE (10:48)
[2020-10-30] MEDS: CLOPIDOGREL 75 MG TABLET PO SCH (11:55)
[2020-10-30] MEDS: RANOLAZINE 500 MG TABLET PO SCH (11:55)
[2020-10-30] MEDS: RIVAROXABAN 20 MG TABLET PO SCH (11:56)
[2020-10-30] MEDS: AMIODARONE 200 MG TABLET PO SCH (11:59)
[2020-10-30] MEDS ORDERED: PROMETHAZINE INJ 25 MG in SODIUM CHLORIDE 0.9% 50 ML IV PRN (14:26)
[2020-10-30] MEDS ORDERED: FUROSEMIDE 40 MG/4 ML VIAL IV ONE (15:52)
[2020-10-30 16:13] LABS: ABG Base Excess -3.4 MMOL/L (-2.5-2.5); ABG HCO3 21.6 MMOL/L (20-26); ABG Oxygen Saturation 98.5 % (95-100); ABG PCO2 37.4 MM HG (35-48); ABG PH 7.367 (7.35-7.45); ABG TCO2 19.4 MMOL/L (23-27)
[2020-10-30 16:54] LABS: Bilirubin,Urine Negative (Negative); Blood, Urine Moderate mg/dL (Negative); Glucose,Urine (UA) Negative (Negative); Hyaline Casts,Urine 12 /LPF (0-3); Ketones,Urine Negative (Negative); Mucus,Urine Occasional /LPF (Occasional); Nitrite,Urine Negative (Negative); Protein,Urine 30 MG/DL; RBC,Urine 38 /HPF (0-4); Squamous Epithelial Cell,Urine Occasional /HPF (0-10); Urine Appearance CLOUDY (Clear); Urine Color Amber (Yellow); Urine Specific Gravity 1.014 (1.001-1.035)
[2020-10-30] MEDS: HYDROCORTISONE 100 MG VIAL IV SCH ×2 (17:35→23:05)
[2020-10-30] MEDS ORDERED: AMIODARONE 200 MG TABLET PO SCH (21:00)
[2020-10-30 23:53] LABS: ABG Base Excess -3.8 MMOL/L (-2.5-2.5); ABG HCO3 21.3 MMOL/L (20-26); ABG Oxygen Saturation 99.2 % (95-100); ABG PCO2 36.5 MM HG (35-48); ABG PH 7.369 (7.35-7.45); Allen Test Positive; Pt O2 Delivery Device BIPAP
[2020-10-31] MEDS ORDERED: PHENYLEPHRINE DRIP 40 MG/250 ML PREMIX IV ONE (02:55)
[2020-10-31] MEDS ORDERED: ROCURONIUM 100 MG/10 ML VIAL IV ONE (02:58)
[2020-10-31] MEDS ORDERED: ETOMIDATE 20 MG/10 ML VIAL IV ONE (02:58)
[2020-10-31] MEDS: PHENYLEPHRINE DRIP 40 MG/250 ML PREMIX IV PRN ×2 (02:58→05:03)
[2020-10-31] MEDS ORDERED: NOREPINEPHRINE 4 MG/4 ML VIAL IV ONE (03:02)
[2020-10-31] MEDS ORDERED: EPINEPHrine 1 MG/10 ML SYRINGE ONE ×2 (03:02→03:20)
[2020-10-31] MEDS ORDERED: MIDAZOLAM 10 MG/2 ML VIAL ONE (03:06)
[2020-10-31] MEDS: NOREPINEPHRINE 8 MG in SODIUM CHLORIDE 0.9% 242 ML IV PRN ×3 (03:07→10:16)
[2020-10-31] MEDS ORDERED: EPINEPHrine 1 MG/10 ML SYRINGE IV ONE ×3 (03:10→04:09)
[2020-10-31] MEDS ORDERED: MIDAZOLAM 2 MG/2 ML VIAL IV ONE ×2 (03:10→04:37)
[2020-10-31] MEDS ORDERED: DOBUTamine 500 MG/250 ML PREMIX IV ONE (03:10)
[2020-10-31] MEDS: DOBUTamine 500 MG/250 ML PREMIX IV PRN ×3 (03:16→17:30)
[2020-10-31] MEDS ORDERED: HEPARIN/NACL 0.9% 2 UNITS/ML 0 UNIT/0 ML BAG IV ONE (03:17)
[2020-10-31] MEDS: MIDAZOLAM 100 MG in SODIUM CHLORIDE 0.9% 80 ML IV PRN ×2 (03:25→17:28)
[2020-10-31] MEDS ORDERED: EPINEPHrine 1 MG/ML VIAL ONE (03:25)
[2020-10-31] MEDS ORDERED: SODIUM BICARBONATE 50 MEQ/50 ML VIAL IV ONE ×3 (03:25→04:01)
[2020-10-31] MEDS ORDERED: CALCIUM CHLORIDE 1,000 MG/10 ML SYRINGE IV ONE ×2 (03:25→03:51)
[2020-10-31 03:59] LABS: ABG Base Excess -5.7 MMOL/L (-2.5-2.5); ABG HCO3 19.7 MMOL/L (20-26); ABG Oxygen Saturation 94.5 % (95-100); ABG PCO2 48.3 MM HG (35-48); ABG PH 7.257 (7.35-7.45); ABG PO2 95.1 MM HG (80-95); ABG TCO2 19.9 MMOL/L (23-27)
[2020-10-31 04:04] LABS: Basophils % 0.1 % (0.0-0.8); Hematocrit 29.1 VOL% (42.0-52.0); Hemoglobin 10.2 GM/DL (14.0-18.0); Immature Granulocytes % 1.4 %; Immature Granulocytes Absolute 0.28 #; Lymphocytes # 0.5 10*3/uL (1.4-4.0); Lymphocytes % 2.5 % (21.2-54.2); Mean Corpuscular HGB Conc 35.1 GM/DL (32-36); Mean Platelet Volume 11.8 FL (9.6-12.0); Monocytes % 2.4 % (1.7-12.7); NRBC # 0.24 10*3/uL; Neutrophils % 93.6 % (38.7-73.9); Red Cell Distribution Width 13.9 % (9.3-17.3)
[2020-10-31 04:07] LABS: Platelet Count 67 T/CUMM (130-400); White Blood Count 20.2 T/CUMM (4-12)
[2020-10-31 04:15] LABS: Calcium 6.6 MG/DL (8.5-10.1); Osmolality,Calculated 280.2 MOS/KG (273-304); Potassium 3.7 MMOL/L (3.5-5.1)
[2020-10-31 04:30] LABS: PT Patient Result 103.1 SECS (9.8-11.9); Partial Thromboplastin Time 63.8 SECS (23.9-33.8)
[2020-10-31 04:32] LABS: Alanine Aminotransferase 2515 U/L (16-61); Albumin 2.5 G/DL (3.4-5.0); Alkaline Phosphatase 250 U/L (45-117); Aspartate Amino Transferase 1645 U/L (0-37); Blood Urea Nitrogen 123 MG/DL (7-18); CKMB % 0.9 %; Calcium 6.7 MG/DL (8.5-10.1); Carbon Dioxide 21 MMOL/L (21-32); Estimated Glom Filtration Rate 14 ML/MIN; Glucose 98 MG/DL (74-106); Potassium 3.8 MMOL/L (3.5-5.1); Total Protein 4.9 G/DL (6.4-8.2); Troponin I 0.237 NG/ML (0.00-0.045)
[2020-10-31 04:33] LABS: Osmolality,Calculated 280.2 MOS/KG (273-304); Sodium 120 MMOL/L (136-145)
[2020-10-31 04:42] LABS: Band Neutrophils 11 % (0-10); Lymphocytes 2 % (20-55); Metamyelocytes 15 %; Myelocytes 1 %; Segmented Neutrophils 67 % (50-85); Total Cells Counted 100
[2020-10-31] MEDS ORDERED: MIDAZOLAM 10 MG/2 ML VIAL IV ONE (04:43)
[2020-10-31 04:56] LABS: Burr Cells 1+; Platelet Estimate Decreased
[2020-10-31 04:57] LABS: Anisocytosis 1+; Macrocytosis 1+; Polychromasia Few
[2020-10-31] MEDS ORDERED: PHYTONADIONE 10 MG/1 ML AMP SUBCUT ONE (05:04)
[2020-10-31] MEDS: HYDROCORTISONE 100 MG VIAL IV SCH ×3 (05:09→17:27)
[2020-10-31] MEDS ORDERED: SODIUM BICARBONATE 50 MEQ/50 ML SYRINGE IV ONE (05:13)
[2020-10-31 06:00] LABS: ABG Base Excess 0.8 MMOL/L (-2.5-2.5); ABG HCO3 25.1 MMOL/L (20-26); ABG Oxygen Saturation 94.3 % (95-100); ABG PCO2 44.1 MM HG (35-48); ABG PH 7.381 (7.35-7.45); ABG TCO2 23.9 MMOL/L (23-27)
[2020-10-31] MEDS: PHENYLEPHRINE INJ 160 MG in SODIUM CHLORIDE 0.9% 234 ML IV PRN ×3 (06:30→23:05)
[2020-10-31] MEDS ORDERED: SODIUM BICARB INJ 150 MEQ in STERILE WATER INJ 850 ML IV SCH (08:30)
[2020-10-31] MEDS: PANTOPRAZOLE 40 MG TABLET PO SCH (09:22)
[2020-10-31] MEDS: PARoxetine 20 MG TABLET PO SCH (09:22)
[2020-10-31] MEDS: CHOLECALCIFEROL 5,000 UNIT TABLET PO SCH (09:22)
[2020-10-31] MEDS: ASCORBIC ACID 500 MG TABLET PO SCH ×2 (09:22→22:16)
[2020-10-31] MEDS: SODIUM BICARB INJ 150 MEQ in STERILE WATER INJ 1,000 ML IV SCH ×2 (10:16→21:14)
[2020-10-31] MEDS ORDERED: SODIUM CHLORIDE 0.9% 1,000 ML IV PRN (12:19)
[2020-10-31] MEDS ORDERED: NOREPINEPHRINE 16 MG in SODIUM CHLORIDE 0.9% 234 ML IV PRN ×2 (13:19→21:30)
[2020-10-31] MEDS ORDERED: ALBUMIN 25% 25 GM/100 ML VIAL IV ONE (15:30)
[2020-10-31 21:29] LABS: Hepatitis B Core IgM Quant 0.12 Index; Hepatitis B Surface Ag Quant < 0.10 Index; Hepatitis B Surface Ag Result Non-Reactive (NonReactive); Hepatitis C Virus Ab Quant 0.15 Index; Hepatitis C Virus Ab Result Non-Reactive (NonReactive)
[2020-10-31 23:08] LABS: ABG Base Excess 0.5 MMOL/L (-2.5-2.5); ABG HCO3 24.7 MMOL/L (20-26); ABG Oxygen Saturation 89.1 % (95-100); ABG PCO2 45.2 MM HG (35-48); ABG PH 7.368 (7.35-7.45); ABG PO2 66.6 MM HG (80-95); ABG TCO2 24.1 MMOL/L (23-27)
[2020-10-31 23:33] LABS: Albumin 2.7 G/DL (3.4-5.0); Calcium 6.2 MG/DL (8.5-10.1); Osmolality,Calculated 279.9 MOS/KG (273-304); Total Protein 4.8 G/DL (6.4-8.2)
[2020-10-31 23:35] LABS: Bilirubin,Total 14.1 MG/DL (0.2-1.0)
[2020-11-01 00:17] VITALS: BP 71/53
[2020-11-01] MEDS ORDERED: CALCIUM CHLORIDE 1,000 MG/10 ML SYRINGE IV ONE ×3 (01:37→02:14)
[2020-11-01] MEDS ORDERED: SODIUM BICARBONATE 50 MEQ/50 ML VIAL IV ONE ×3 (01:39→01:54)
[2020-11-01] MEDS ORDERED: ATROPINE 1 MG/10 ML SYRINGE IV ONE ×2 (01:42→01:59)
[2020-11-01] MEDS ORDERED: EPINEPHrine 1 MG/10 ML SYRINGE IV ONE ×2 (01:44→02:00)
[2020-11-01] MEDS: HYDROCORTISONE 100 MG VIAL IV SCH ×2 (01:52→06:07)
[2020-11-01] MEDS ORDERED: SODIUM CHLORIDE 0.9% 250 ML IV ONE (01:57)
[2020-11-01 01:59] LABS: Basophils % 0.3 % (0.0-0.8); Hematocrit 24.4 VOL% (42.0-52.0); Hemoglobin 8.3 GM/DL (14.0-18.0); Immature Granulocytes % 1.4 %; Immature Granulocytes Absolute 0.13 #; Lymphocytes # 0.3 10*3/uL (1.4-4.0); Lymphocytes % 3.3 % (21.2-54.2); Mean Platelet Volume 12.4 FL (9.6-12.0); Monocytes % 2.7 % (1.7-12.7); NRBC # 0.35 10*3/uL; Neutrophils % 92.3 % (38.7-73.9); Red Blood Count 2.49 MC/CUMM (3.8-5.5); Red Cell Distribution Width 14.2 % (9.3-17.3); White Blood Count 9.6 T/CUMM (4-12)
[2020-11-01] MEDS ORDERED: SODIUM BICARBONATE 50 MEQ/50 ML SYRINGE IV ONE ×2 (02:01→02:14)
[2020-11-01 02:02] LABS: ABG Base Excess -2.2 MMOL/L (-2.5-2.5); ABG HCO3 22.4 MMOL/L (20-26); ABG Oxygen Saturation 86.9 % (95-100); ABG PCO2 43.3 MM HG (35-48); ABG PH 7.342 (7.35-7.45); ABG PO2 63.6 MM HG (80-95); ABG TCO2 21.9 MMOL/L (23-27)
[2020-11-01 02:03] LABS: Platelet Count 37 T/CUMM (130-400)
[2020-11-01] MEDS ORDERED: EPINEPHrine 1 MG/10 ML SYRINGE ONE (02:14)
[2020-11-01] MEDS ORDERED: MAGNESIUM SULFATE 1 GM/2 ML VIAL ONE (02:14)
[2020-11-01] MEDS ORDERED: DEXTROSE 50% 25 GM/50 ML SYRINGE IV ONE (02:14)
[2020-11-01] MEDS ORDERED: HYDROCORTISONE 100 MG VIAL ONE (02:14)
[2020-11-01 02:21] LABS: Band Neutrophils 1 % (0-10); Hypochromasia Slight; Lymphocytes 3 % (20-55); Metamyelocytes 1 %; Myelocytes 1 %; Nucleated Red Blood Cells 3 (0-5); Platelet Estimate Decreased; Segmented Neutrophils 88 % (50-85)
[2020-11-01 02:22] LABS: Burr Cells Few; Total Cells Counted 100
[2020-11-01 02:26] LABS: Albumin 2.3 G/DL (3.4-5.0); Calcium 6.9 MG/DL (8.5-10.1); Osmolality,Calculated 286.7 MOS/KG (273-304); Potassium 4.6 MMOL/L (3.5-5.1); Total Protein 4.3 G/DL (6.4-8.2)
[2020-11-01 02:30] LABS: Bilirubin,Total 12.8 MG/DL (0.2-1.0); PT Patient Result 68.5 SECS (10.5-12.0); Partial Thromboplastin Time 84.2 SECS (23.9-33.8)
[2020-11-01 02:34] LABS: INR 7.1
== END 2020-11-01 02:14 | disposition expired | DRG 286 ==
LOC: N.ED 10:38 → N.EDINP 14:06 → N.TELEN 14:46 → N.ICU 10-30 16:23
PROVIDERS: ADMIT Internal Medicine Cardiovascular Disease; ATTEND Internal Medicine Cardiovascular Disease